=== PATIENT | female | born 1960 | race Caucasian/White ===

== ENCOUNTER 2019-09-28 14:41 | Emergency (ER) | payer OTHER, SELFPAY ==
[2019-09-28] VITALS (7 sets, daily range): BP systolic 109–151; BP diastolic 63–83; PULSE 124–138; RESP 18–25; TEMP 36.7; O2SAT 95–98
--- NOTE | ~2019-09-28 | XR_ITS ---
EXAMINATION: XR chest 2V EXAM DATE: 09/28/2019 15:52 INDICATION: Cough and shortness of breath. TECHNIQUE: Frontal and lateral projections of the chest obtained and reviewed. Comparison is made to prior examination from 07/09/2012. FINDINGS: The lungs are clear. There are no pleural effusions. The cardiomediastinal silhouette is within normal limits. There is no pneumothorax suspected. Patient has diffuse idiopathic skeletal h yperostosis (DISH). IMPRESSION: No acute cardiopulmonary findings. Reviewed, dictated and finalized at location A. [employer]
--- NOTE | ~2019-09-28 | CT_ITS ---
EXAMINATION: CTA chest PE protocol EXAM DATE: 09/28/2019 16:24 INDICATION: Midsternal chest pain, shortness of breath, tachycardia. TECHNIQUE: Spiral CTA of the chest (pulmonary arteries) was performed with 100 cc Omnipaque 350 intr avenous contrast injection. Images were acquired during the pulmonary arterial phase. Coronal maxi mum intensity projection 3D-reconstructions were created by the technologist on dedicated workstation . Axial, coronal and sagittal reformatted images were reviewed. The dose-length product (DLP) for t his examination was 882.69 mGy-cm. The exposure was tailored according to patient size (auto mA exp osure control), and iterative reconstruction (ASIR) was used as additional dose reduction technique. There is no prior study for comparison. FINDINGS: There are no pulmonary emboli in the 1st through 3rd order (central and interlobar) pulmon andria arteries. Some loss of attenuation in the segmental pulmonary arteries due to respiratory motion , but no intraluminal filling defects suspected. No thoracic aortic dissection. There is a 4 mm ri ght middle lobe nodule most likely postinfectious. There is right lower lobe calcified granuloma. Th ere are no pleural or pericardial effusions. Tracheobronchial tree is patent. There is no mediast inal, hilar or axillary lymphadenopathy. There is no pneumothorax. Heart normal in size. There is mild coronary arterial calcification, arterial sclerosis. There is hepatic steatosis. Patient goode s diffuse idiopathic skeletal hyperostosis (DISH). There is moderate thoracic spondylosis. IMPRESSION: 1. Limited segmental evaluation, but no pulmonary emboli are suspected. 2. Hepatic steatosis. Reviewed, dictated and finalized at location A. [employer]
--- NOTE | 2019-09-28 14:52 | ED.CHESTPAIN ---
HPI - Chest Pain General Chief Complaint: Chest Pain Stated Complaint: chest pain Time Seen by Provider: 09/28/19 14:52 Source: patient Mode of arrival: ambulatory Limitations: no limitations History of Present Illness HPI narrative: A 59 y/o female presents to the ED with c/o a cough since Sunday (2 days ago) and midsternal CP. Pt states that the cough started out as dry but became productive today. Pt was seen at [facility] yesterday with a wheeze and was advised to follow up with her PCP for possible asthma. Pt also c/o constant midsternal CP that began at 1:00 AM that has worsened since onset. Pt describes the pain as dull in character that turns into a stabbing pain when she coughs. Pt rates her current pain as a 7.5/10 in severity. Pt has not taken any pain medication today. She reports N/V x3 today, sinus congestion, SOB, and a PMHx of a leaky heart valve, but denies a fever, smoking, and a PMHx of an UT, stents, and kidney problems. Pain location: other (midsternal) Quality: dull and other (stabbing when coughing) Treatment prior to arrival: none Related Data Allergies Allergy/AdvReac Type Severity Reaction Status Date / Time lisinopril Allergy Intermediate Cough Verified 09/28/19 14:51 HYDROCODONE BIT Allergy Mild DIZZY Uncoded 09/28/19 14:51 Review of Systems Review of Systems: All systems reviewed & are unremarkable except as noted in HPI and below Constitutional: Constitutional: Denies fever(s) ENT: Comments: Reports: sinus congestion Cardiovascular: Cardiovascular: Reports chest pain (midsternal) Respiratory: Respiratory: Reports cough (productive) and Reports dyspnea Gastrointestinal: Gastrointestinal: Reports nausea and Reports vomiting (x3) [facility] Past Medical History Medical History (Updated 09/28/19 @ 18:20 by Chata Pratt MD) Diverticulitis DM I (diabetes mellitus, type I) Far-sighted HLD (hyperlipidemia) HTN (hypertension) Leaky heart valve left ventricle Rectal fissure Sleep apnea Surgical History Surgical History (Updated 09/28/19 @ 15:06 by Oralia Alaniz) H/O removal of cyst left wrist History of tonsillectomy Hx of cholecystectomy Family History Family History Mother Family history of hypercholesterolemia Hypertension Cerebrovascular accident Family history of lung cancer Other Family history of malignant neoplasm Family history of malignant neoplasm of breast Family history of malignant neoplasm of ovary Social History Social History Smoking status: Never smoker Alcohol intake: current Comments PSHx: rectal fissure surgery PCP: Ora Campuzano NP Exam Narrative: Exam Narrative: GENERAL: well-nourished, and in no acute distress. patietn coughing HEAD: Normocephalic, atraumatic EYES: PERRLA and EOMI, conjunctiva clear without discharge EARS: TM's clear bilaterally without erythema or dullness NOSE: Nares clear, no rhinorrhea or epistaxis THROAT:Mucous membranes moist, Oropharynx normal without erythema, exudate, peritonsillar swelling or fluctuance NECK: Supple, without lymphadenopathy or mass RESPIRATORY: No respiratory distress, Airway patent, Respirations non-labored, Clear to auscultation without rales, rhonchi or wheeze HEART: Tachycardic rate Regular rhythm. No murmur heard. Normal peripheral pulses. ABDOMEN: Soft, nontender, nondistended, normal active bowel sounds. No masses. No rebound or guarding, No organomegaly. EXTREMITIES: No edema, normal strength with full range of motion. SKIN: Warm, dry, normal color without rash NEURO: Alert and oriented x3. CN 2-12 grossly intact. No focal deficits. PSYCH: Normal mood and affect. Course Reevaluation(s) Reevaluation #1: PAtient states sh feels much better. She denies any sob. I discussed she does not have pneumonia. I discussed that she is at risk and to return if symptoms worsen. Date: 09/28/19
--- NOTE | 2019-09-28 14:58 | ECG_ITS ---
Measurements Intervals [place] Rate: 128 P: 55 HI: 170 QRS: 80 QRSD: 90 T: 64 QT: 318 QTc: 465 Interpretive Statements SINUS TACHYCARDIA ABNORMAL ECG Electronically Signed On 09-28-2019 19:23:28 [employer] by Albino Rain D.O.
[2019-09-28 15:34] LABS: Basophils Absolute Auto 0.1 K/mm3 (0.0-0.1); Basophils Percent Auto 0.6 % (0.2-1.2); Eosinophils Percent Auto 0.1 % (0-4.4); Hematocrit 44.5 % (37.0-47.0); Hemoglobin 14.5 g/dL (12.0-15.0); Immature Granulocyte Absolute 0.03 K/mm3 (0.00-0.031); Immature Granulocyte Percent A 0.4 % (0-0.5); Lymphocytes Absolute Auto 0.48 K/mm3 (0.9-3.2); Lymphocytes Percent Auto 5.9 % (18.3-44.2); Mean Corpuscular HGB Conc 32.6 g/dl (32-36); Mean Corpuscular Hemoglobin 30.3 pg (26-34); Mean Corpuscular Volume 92.9 fl (80-100); Mean Platelet Volume 11.1 fl (7.4-10.4); Monocytes Absolute Auto 0.8 K/mm3 (0.1-0.6); Monocytes Percent Auto 9.5 % (2.6-8.5); Neutrophils Absolute Auto 6.7 K/mm3 (1.3-6.7); Neutrophils Percent Auto 83.5 % (45.5-73.1); Platelet Count Result 247 k/mm3 (150-375); Red Blood Count 4.79 M/mm3 (4.2-5.4); Red Cell Distribution Width 14.4 % (11.5-14.5); White Blood Count 8.1 K/mm3 (4.5-10.0)
[2019-09-28 15:36] LABS: Alveolar/Arterial O2 Gradient 41.9 mmHg; Base Excess ABG 1.1 mEq/l (+/-2.0); Carboxyhemoglobin 1.1 % THb (0-2.0); Fractional Inspired Oxygen 21 %; HCO3 ABG 22.2 mEq/l (22.0-26.0); Methemoglobin ABG 0.2 %THb (0-1.5); Oxygen Content ABG 19.7 %vol (16.0-22.0); Oxygen Saturation ABG 96.7 % (95.0-100.0); Oxyhemoglobin 95.3 % THb (90.0-100.0); PCO2 ABG 26.8 mmHg (35.0-45.0); PO2 ABG 75.7 mmHg (80.0-100.0); Reduced Hemoglobin 3.4 %THb (0-5.0); Total Hemoglobin 14.7 g/dL (12.0-18.0)
[2019-09-28 15:38] LABS: Site Drawn LEFT BRACHIAL; pH ABG 7.537 (7.350-7.450)
[2019-09-28 15:39] LABS: Device ROOM AIR
[2019-09-28 15:45] LABS: Alanine Aminotransferase 58 U/L (4-35); Albumin Level 4.3 g/dL (3.5-5.1); Alkaline Phosphatase 102 U/L (38-126); Aspartate Amino Transferase 69 U/L (14-36); Bilirubin,Total 0.6 mg/dL (0.2-1.3); Blood Urea Nitrogen 7 mg/dL (7-17); Calcium 9.5 mg/dL (8.4-10.2); Carbon Dioxide 25 mmol/L (22-30); Chloride 100 mmol/L (98-107); Estimated CRCL calculation 89 ml/min; Estimated Glomerular Filt Rate > 60; Glucose 196 mg/dL (65-105); Lipase 159 U/L (23-300); Sodium 136 mmol/L (137-145)
[2019-09-28] MEDS: SODIUM CHLORIDE 0.9% IV 1,000 ML 999 ML IV CONT (15:46)
[2019-09-28] MEDS: ONDANSETRON INJ 4 MG/2 ML VIAL IV PUSH (15:46)
[2019-09-28 15:57] LABS: Lactic Acid Reflex 2.5 mmol/L (0.7-2.1)
[2019-09-28 15:57] LABS: NT Pro B Type Natriuretic Pept 405 PG/ML (5-100); Troponin I < 0.012 ng/mL (0.000-0.034)
[2019-09-28] MEDS: IPRATROPIUM BR 0.02% INH SOLN 0.5 MG/2.5 ML VIAL INHALATION (16:25)
[2019-09-28] MEDS: ALBUTEROL SULFATE NEB 2.5 MG/0.5 ML INH 5 MG INHALATION (16:26)
[2019-09-28] MEDS: LACTATED RINGERS 1,000 ML 999 ML IV CONT ×2 (16:29→17:15)
[2019-09-28 18:44] LABS: Reflex Lactic Acid Yes or No Add Lactic
--- NOTE | 2019-10-08 17:20 | PC.NURSE ---
LATE ENTRY This note is being entered to document information to the patient's record. The following information was omitted on [09/28/19], by [Jason Blair] SARAH BETH STARTED , ENDED 1730. LR STARTED AT 1715, ENDED 1815 Jason Blair
== END 2019-09-28 18:36 | disposition home or self-care (01) ==
PROVIDERS: Emergency Provider General Practice; PCP Nurse Practitioner Adult Health
DX: J10.1 Influenza due to other identified influenza virus with other respiratory manifestations (principal); E10.9 Type 1 diabetes mellitus without complications; E78.5 Hyperlipidemia, unspecified; I10 Essential (primary) hypertension; G47.30 Sleep apnea, unspecified; I38 Endocarditis, valve unspecified; R00.0 Tachycardia, unspecified; R06.02 Shortness of breath
CPT/HCPCS: 36415; 36600; 71046; 71275; 80053; 82375; 82805; 83050; 83605; 83690; 83880; 84484; 85025; 87804; 93005; 94640; 96361; 96374; 96375; 99284; J0131; J2405; J7030; J7120; Q9967

== ENCOUNTER 2020-06-25 14:58 | Outpatient (CLI) | payer OTHER, SELFPAY ==
[2020-06-25 15:30] LABS: Anion Gap 7 mmol/L (8-16); Blood Urea Nitrogen 9 mg/dL (7-17); Carbon Dioxide 33 mmol/L (22-30); Chloride 101 mmol/L (98-107); Estimated Glomerular Filt Rate > 60; Glucose 150 mg/dL (65-105); Potassium 4.2 mmol/L (3.4-5.0); Sodium 141 mmol/L (137-145)
== END 2020-06-25 14:59 | disposition home or self-care (01) ==
LOC: ANHSURGERY 15:00
PROVIDERS: Anesthesiology; PCP Nurse Practitioner Adult Health; Visit Provider Obstetrics & Gynecology
DX: E11.9 Type 2 diabetes mellitus without complications (principal); Z01.818 Encounter for other preprocedural examination
CPT/HCPCS: 36415; 80048

== ENCOUNTER 2020-06-28 00:48 | Outpatient (CLI) | payer OTHER, SELFPAY ==
[2020-06-28 16:30] LABS: SARS-CoV-2 RNA PCR Negative
== END 2020-06-28 00:49 | disposition home or self-care (01) ==
LOC: ANHCOVIDDT 00:48
PROVIDERS: PCP Nurse Practitioner Adult Health; Visit Provider Obstetrics & Gynecology
DX: Z01.812 Encounter for preprocedural laboratory examination (principal); Z20.828 Contact with and (suspected) exposure to other viral communicable diseases
CPT/HCPCS: 87635; C9803; U0003

== ENCOUNTER 2020-06-30 00:23 | Day surgery (SDC) | payer OTHER, SELFPAY ==
[2020-06-17 12:36] VITALS: BMI 47.9
--- NOTE | 2020-06-29 08:40 | WPDANESEPPF ---
Anes - Initial Pre Proc Eval Procedure: Operation Date: 06/30/20 10:30 Proposed Procedures p Hysteroscopy Dilation and Curettage With Myosure - Poncho Taylor MD Date/Time: 06/29/20 08:40 Surgeon: Poncho Taylor MD Pre Op Diagnosis: Post Menopausal Bleeding Patient Data Age: 60 Gender: F Height: 1.57 m Weight: 118.84 kg Allergies Allergy/AdvReac Type Severity Reaction Status Date / Time lisinopril Allergy Intermediate Cough Verified 06/30/20 08:42 HYDROCODONE BIT AdvReac Mild DIZZY Uncoded 06/30/20 08:42 Home Medications Medication Instructions Recorded Confirmed Type ascorbate calcium (vitamin C) 500 500 mg PO DAILY 05/27/20 06/30/20 History mg tablet aspirin 81 mg tablet,delayed 81 mg PO DAILY 05/27/20 06/30/20 History release cetirizine 10 mg capsule 10 mg PO DAILY 05/27/20 06/30/20 History cholecalciferol (vitamin D3) 1,250 1,250 mcg PO WEEKLY 05/27/20 06/30/20 History mcg (50,000 unit) capsule ezetimibe 10 mg tablet 10 mg PO DAILY 05/27/20 06/30/20 History glimepiride 2 mg tablet 2 mg PO QAM 05/27/20 06/30/20 History liraglutide (weight loss) 3 mg/0.5 3 mg SUB-Q DAILY 05/27/20 06/30/20 History mL (18 mg/3 mL) subcut pen injector losartan 25 mg tablet 25 mg PO DAILY 05/27/20 06/30/20 History multivitamin,sl-hqdz-uatefixe 1 tablet PO DAILY 05/27/20 06/30/20 History vitamin B complex 1 tablet PO DAILY 05/27/20 06/30/20 History cyanocobalamin (vitamin B-12) 1,000 mcg PO DAILY 06/17/20 06/30/20 History [Vitamin B-12] famotidine 20 mg tablet 20 mg PO DAILY 06/23/20 06/30/20 History metformin 500 mg tablet 500 mg PO BID 06/23/20 History Patient hx anesthesia problems: none Family hx anesthesia problems: none PMFSH Past Medical History Medical History (Updated 06/30/20 @ 06:17 by Poncho Taylor MD) Diverticulitis DM I (diabetes mellitus, type I) Far-sighted HLD (hyperlipidemia) HTN (hypertension) Leaky heart valve left ventricle Rectal fissure Sleep apnea Surgical History Surgical History (Updated 05/28/20 @ 11:21 by Poncho Taylor MD) H/O removal of cyst left wrist History of hysteroscopy History of tonsillectomy Hx of cholecystectomy Family History Family History Mother Family history of hypercholesterolemia Hypertension Cerebrovascular accident Family history of lung cancer Other Family history of malignant neoplasm Family history of malignant neoplasm of breast Family history of malignant neoplasm of ovary Social History Social History Smoking status: Never smoker Alcohol intake: current Spiritual care concerns: No Anes - Eval Final PreProcedure Day of Procedure 06/29/20 08:40 Patient weight: morbidly obese Heart: regular rate and rhythm Lungs: clear to auscultation and normal air movement Airway: Mallampati scale class III Neurological: alert and oriented Last oral intake: >/= 8 hours ASA classification: III Emergent: no Anesthetic plan: proceed Anesthesia type and monitoring: general GIVS and standard monitoring Informed Consent: The patient's anesthetic plan and its attendant risks and benefits were discussed with the patient/family/POA. Questions were solicited and answers provided to the satisfaction of the patient/family/POA.
[2020-06-30] VITALS (7 sets, daily range): BP systolic 129–176; BP diastolic 59–96; PULSE 63–86; RESP 14–20; TEMP 36.7; O2SAT 94–99
--- NOTE | 2020-06-30 06:10 | PM.IMHP ---
H&P: HPI History of Present Illness Date/Time: 06/30/20 06:10 Chief complaint: Post Menopausal Bleeding Narrative: Anaid Blanc is a 60 year old female with recent history of postmenopausal spotting. Recent ultrasound showed thickened endometrial stripe. She was offered office endometrial biopsy or direct visualization with hysteroscopy and dilation and currettage for histologic evaluation of the endometrium. She declined the office biopsy and desires hysteroscopy. She had a hysteroscopy in 2017 and endometrial polyp was seen at that time. Has had pre-op medical clearance. Review of Systems Review of Systems: All systems reviewed & are unremarkable except as noted in HPI and below Constitutional: Constitutional: Reports no additional constitutional complaints Eyes: Eyes: Reports no additional eye complaints ENT: Reports Normal hearing present Cardiovascular: Cardiovascular: Denies chest pain and Denies dyspnea Respiratory: Respiratory: Reports no additional respiratory complaints, Denies dyspnea and Reports other Gastrointestinal: Gastrointestinal: Denies abdominal pain Genitourinary: Genitourinary: Reports no additional female genitourinary complaints and Reports as per HPI Psychiatric: Psychiatric: Reports no additional psychiatric complaints Endocrine: Endocrine: Reports no additional endocrine complaints Hematologic/Lymphatic: Hematologic/Lymphatic: Reports no additional hematologic/lymphatic complaints [facility] Past Medical History Medical History (Updated 06/30/20 @ 06:17 by Poncho Taylor MD) Diverticulitis DM I (diabetes mellitus, type I) Far-sighted HLD (hyperlipidemia) HTN (hypertension) Leaky heart valve left ventricle Rectal fissure Sleep apnea Surgical History Surgical History (Updated 05/28/20 @ 11:21 by Poncho Taylor MD) H/O removal of cyst left wrist History of hysteroscopy History of tonsillectomy Hx of cholecystectomy Family History Family History Mother Family history of hypercholesterolemia Hypertension Cerebrovascular accident Family history of lung cancer Other Family history of malignant neoplasm Family history of malignant neoplasm of breast Family history of malignant neoplasm of ovary Social History Social History Smoking status: Never smoker Alcohol intake: current Spiritual care concerns: No Meds Home Medications and Allergies Home Medications Medication Instructions Recorded Confirmed Type ascorbate calcium (vitamin C) 500 500 mg PO DAILY 05/27/20 06/30/20 History mg tablet aspirin 81 mg tablet,delayed 81 mg PO DAILY 05/27/20 06/30/20 History release cetirizine 10 mg capsule 10 mg PO DAILY 05/27/20 06/30/20 History cholecalciferol (vitamin D3) 1,250 1,250 mcg PO WEEKLY 05/27/20 06/30/20 History mcg (50,000 unit) capsule ezetimibe 10 mg tablet 10 mg PO DAILY 05/27/20 06/30/20 History glimepiride 2 mg tablet 2 mg PO QAM 05/27/20 06/30/20 History liraglutide (weight loss) 3 mg/0.5 3 mg SUB-Q DAILY 05/27/20 06/30/20 History mL (18 mg/3 mL) subcut pen injector losartan 25 mg tablet 25 mg PO DAILY 05/27/20 06/30/20 History multivitamin,wm-vuay-rczyevje 1 tablet PO DAILY 05/27/20 06/30/20 History vitamin B complex 1 tablet PO DAILY 05/27/20 06/30/20 History cyanocobalamin (vitamin B-12) 1,000 mcg PO DAILY 06/17/20 06/30/20 History [Vitamin B-12] famotidine 20 mg tablet 20 mg PO DAILY 06/23/20 06/30/20 History metformin 500 mg tablet 500 mg PO BID 06/23/20 History Allergies Allergy/AdvReac Type Severity Reaction Status Date / Time lisinopril Allergy Intermediate Cough Verified 06/30/20 08:42 HYDROCODONE BIT AdvReac Mild DIZZY Uncoded 06/30/20 08:42 Exam Const: General: healthy appearing, no acute distress, alert and awake Nutritional Appearance: well nourished Orientation/consciousness: oriented to
[2020-06-30] MEDS: ACETAMINOPHEN 500 MG TABLET 1000 MG PO (08:58)
[2020-06-30] MEDS: LACTATED RINGERS 1,000 ML 30 ML IV CONT (08:59)
[2020-06-30 09:10] LABS: Glucose Point of Care 168 (65-105)
--- NOTE | 2020-06-30 10:27 | SUR.PREOP ---
update provided r/t delay w/surgeon/acknowledges understanding. ambulated to bathroom w/minimal assistance/family update provided to sister kishan as noted.
--- NOTE | 2020-06-30 11:31 | SUR.PREOP ---
1130-PT AWARE SURGEON DELAYS SELF ADDITIONAL ~45 MINUTES.
--- NOTE | 2020-06-30 12:14 | WPDHPUPDATE1 ---
History and Physical Update Update Date/Time: 06/30/20 12:14 History and Physical has been reviewed, including an updated exam of the patient. There are NO changes in the patient's condition. Risks, benefits, and alternatives have been discussed and questions answered. Patient agrees to proceed with procedure.
[2020-06-30] MEDS: ceFAZolin 2 GM/D5W 50 ML 2 GM/50 ML BAG IVPB (12:19)
--- NOTE | 2020-06-30 12:51 | PM.PROC ---
Procedure Note - Detailed Date of procedure: 07/01/20 Pre-op diagnosis: Post Menopausal Bleeding Post-op diagnosis: same (Endometrial lesion consistent with endometrial polyp.) Procedure performed: Diagnostic Hysteroscopy and Dilation and Currettage Description of procedure: After informed consent was obtained patient was taken to the operating room. Adequate IV sedation was obtained. she was placed in high lithotomy position and prepped and draped in sterile fashion. Attention was turned to the vagina. Speculum was inserted. Single-tooth tenaculum placed on anterior lip of the cervix. The uterus was sounded to 10 centimeters. The cervix was dilated to a size 8 Alvarez dilator. The hysteroscope was inserted. The cavity assessment showed 2 polyps. Stone forceps were inserted and 2 polyp pieces were removed. The myosure was inserted and the remnant of the anterior polyp removed. The hysteroscope was removed and a sharp curettage was performed. Scant tissue obtained. The tenaculum was removed hemostasis was noted at the tenaculum site. The speculum was removed. The patient tolerated the procedure well. Sponge count correct. Patient was taken to recovery room in stable condition. Anesthesia: MAC and local Surgeon: Poncho Taylor MD Estimated blood loss (mL): 5 Drains: No Packing: No Pathology: yes (1. Endocervical currettage 2. Endometrial currettings) Complications: No immediate complications Condition: stable Disposition: same day Findings: Uterus sound to 10cm, uterine cavity showed several small endometrial polyps. The rest of the cavity appeared atrophic.Most of it removed with stone forceps and the base removed with myosure. Most of the cavity felt atrophic with the currettage.
[2020-06-30 13:26] LABS: Glucose Point of Care 143 (65-105)
[2020-06-30] MEDS: fentaNYL CITRATE INJ (*CRX) 100 MCG/2 ML VIAL 25 MCG IV PUSH ×2 (13:31→13:38)
--- NOTE | 2020-06-30 13:57 | SUR.PHASEII ---
1355- Call to Dr. Salas patient complaining of significant abdominal pain after 50MG of IV fentanyl given. Per Dr. Salas orders for 5MG PO oxycodone.
[2020-06-30] MEDS: oxyCODONE HCL (*CRX) 5 MG TAB IR PO (14:01)
== END 2020-06-30 14:32 | disposition home or self-care (01) ==
PROVIDERS: PCP Nurse Practitioner Adult Health; Visit Provider Obstetrics & Gynecology
PROC: 0U5B8ZZ Destruction of Endometrium, Via Natural or Artificial Opening Endoscopic (ICD-10-PCS; CPT 58563; principal; 2020-06-30 10:30)
DX: N95.0 Postmenopausal bleeding (principal); N84.0 Polyp of corpus uteri; E10.9 Type 1 diabetes mellitus without complications; I10 Essential (primary) hypertension; E78.5 Hyperlipidemia, unspecified; G47.30 Sleep apnea, unspecified; Z79.84 Long term (current) use of oral hypoglycemic drugs; Z79.82 Long term (current) use of aspirin; E66.01 Morbid (severe) obesity due to excess calories; Z68.42 Body mass index [BMI] 45.0-49.9, adult
CPT/HCPCS: 58558; 88305; A9270; J0690; J1885; J2250; J2704; J3010; J7030; J7120

== ENCOUNTER → 2020-11-30 17:34 | Outpatient (CLI) | payer OTHER, SELFPAY ==
--- NOTE | ~2020-11-30 | US_ITS ---
EXAMINATION: US pelvic complete w TV DATE: 11/30/2020 17:54 INDICATION: Postmenopausal bleeding. TECHNIQUE: Multiple transabdominal and transvaginal sonographic images of the pelvis were obtained. COMPARISON: Pelvis ultrasound 11/17/2016 FINDINGS: TRANSABDOMINAL ULTRASOUND: The uterus measures 6.3 x 3.3 x 4.1 cm. There is no free fluid in the pelvis. TRANSVAGINAL ULTRASOUND: The endometrial complex measures 7 mm in thickness. The ovaries are not visualized. IMPRESSION: 1. Mildly thickened endometrial complex. The differential diagnosis includes endometrial hyperplasia, polyp, and carcinoma. Biopsy is recommended. Reviewed, dictated and finalized at location A. IMPRESSION: 1. Mildly thickened endometrial complex. The differential diagnosis includes en dometrial hyperplasia, polyp, and carcinoma. Biopsy is recommended.
== END ==
PROVIDERS: Visit Provider Obstetrics & Gynecology
DX: N95.0 Postmenopausal bleeding (principal)
CPT/HCPCS: 76830; 76856

== ENCOUNTER 2021-01-06 15:26 | Outpatient (CLI) | payer OTHER, SELFPAY ==
--- NOTE | 2021-01-06 16:06 | ECG_ITS ---
Measurements Intervals [place] Rate: 71 P: 28 VA: 169 QRS: 64 QRSD: 94 T: 58 QT: 394 QTc: 429 Interpretive Statements SINUS RHYTHM WITH SINUS ARRHYTHMIA BASELINE ARTIFACT- V4-V6 NORMAL ECG Electronically Signed On 01-06-2021 16:18:44 CDT by Albino Rain D.O.
== END 2021-01-06 15:27 | disposition home or self-care (01) ==
PROVIDERS: PCP Nurse Practitioner Adult Health; Visit Provider Obstetrics & Gynecology
DX: Z01.818 Encounter for other preprocedural examination (principal)
CPT/HCPCS: 93005

== ENCOUNTER 2021-02-10 17:02 | Outpatient (CLI) | payer OTHER, SELFPAY ==
--- NOTE | ~2021-02-10 | US_ITS ---
EXAMINATION: US venous doppler [facility] DATE: 02/10/2021 17:42 INDICATION: Left lower leg pain. TECHNIQUE: Grayscale ultrasound images without and with compression and Doppler ultrasound images of the left lower extremity veins were obtained. COMPARISON: None. FINDINGS: The visualized portions of left common femoral vein, profunda (deep) femoral vein, femoral vein, popl iteal vein, peroneal veins, posterior tibial veins, gastrocnemius vein and greater saphenous vein out flow are patent. IMPRESSION: 1. No deep venous thrombosis in the left lower limb. Reviewed, dictated and finalized at location A.
== END 2021-02-10 17:03 | disposition home or self-care (01) ==
LOC: ANHIMG 17:03
PROVIDERS: PCP Nurse Practitioner Adult Health; Visit Provider Nurse Practitioner Adult Health
DX: M79.662 Pain in left lower leg (principal)
CPT/HCPCS: 93971

== ENCOUNTER 2021-02-18 14:56 | Outpatient (CLI) | payer OTHER, SELFPAY ==
[2021-02-18 15:36] LABS: Anion Gap 7 mmol/L (8-16); Blood Urea Nitrogen 12 mg/dL (7-17); Calcium 9.8 mg/dL (8.4-10.2); Carbon Dioxide 25 mmol/L (22-30); Chloride 109 mmol/L (98-107); Estimated Glomerular Filt Rate > 60; Glucose 114 mg/dL (65-105); Sodium 141 mmol/L (137-145)
== END 2021-02-18 14:57 | disposition home or self-care (01) ==
LOC: ANHSURGERY 15:01
PROVIDERS: Anesthesiology; PCP Nurse Practitioner Adult Health; Visit Provider Obstetrics & Gynecology
DX: E11.9 Type 2 diabetes mellitus without complications (principal); Z01.818 Encounter for other preprocedural examination
CPT/HCPCS: 36415; 80048

== ENCOUNTER → 2021-02-19 00:13 | Outpatient (CLI) | payer OTHER, SELFPAY ==
[2021-02-19 19:26] LABS: SARS-CoV-2 RNA PCR Negative
== END ==
PROVIDERS: PCP Nurse Practitioner Adult Health; Visit Provider Obstetrics & Gynecology
DX: Z01.812 Encounter for preprocedural laboratory examination (principal); Z20.822 Contact with and (suspected) exposure to COVID-19
CPT/HCPCS: C9803; U0003; U0005

== ENCOUNTER 2021-02-23 00:34 | Day surgery (SDC) | payer OTHER, SELFPAY ==
[2021-02-14 13:08] VITALS: BMI 46.6
--- NOTE | 2021-02-22 14:03 | WPDANESEPPF ---
Anes - Initial Pre Proc Eval Procedure: Operation Date: 02/23/21 07:30 Proposed Procedures p Robotic Assisted Laparoscopic Hysterectomy with Bilateral Salpingectomy - Poncho Taylor MD Date/Time: 02/22/21 14:03 Surgeon: Poncho Taylor MD Pre Op Diagnosis: post menopausal bleeding Patient Data Age: 60 Gender: F Height: 1.57 m Weight: 115.67 kg Allergies Allergy/AdvReac Type Severity Reaction Status Date / Time lisinopril AdvReac Intermediate Cough Verified 02/23/21 06:14 HYDROCODONE BIT AdvReac Mild DIZZY Uncoded 02/23/21 06:14 Home Medications Medication Instructions Recorded Confirmed Type ascorbate calcium (vitamin C) 500 500 mg PO DAILY 05/27/20 02/23/21 History mg tablet cetirizine 10 mg capsule 10 mg PO DAILY 05/27/20 02/23/21 History ezetimibe 10 mg tablet 10 mg PO DAILY 05/27/20 02/23/21 History glimepiride 2 mg tablet 2 mg PO QAM 05/27/20 02/23/21 History liraglutide (weight loss) 3 mg/0.5 3 mg SUB-Q DAILY 05/27/20 02/23/21 History mL (18 mg/3 mL) subcut pen injector losartan 25 mg tablet 25 mg PO DAILY 05/27/20 02/23/21 History multivitamin,lb-xmkt-bxnkhtme 1 tablet PO DAILY 05/27/20 02/23/21 History cyanocobalamin (vitamin B-12) 1,000 mcg PO DAILY 06/17/20 02/23/21 History [Vitamin B-12] famotidine 20 mg tablet 20 mg PO DAILY 06/23/20 02/23/21 History metformin 500 mg tablet 1,000 mg PO BID 06/23/20 02/23/21 History cholecalciferol (vitamin D3) 125 125 mcg PO DAILY 12/28/20 02/23/21 History mcg (5,000 unit) capsule nystatin-triamcinolone 100,000 1 applic TOPICAL BID #15 g 02/15/21 02/15/21 Rx unit/gram-0.1 % topical ointment Patient hx anesthesia problems: none Family hx anesthesia problems: none PMFSH Past Medical History Medical History Diverticulitis DM I (diabetes mellitus, type I) Far-sighted HLD (hyperlipidemia) HTN (hypertension) Leaky heart valve left ventricle Rectal fissure Sleep apnea Surgical History Surgical History H/O removal of cyst left wrist History of hysteroscopy History of tonsillectomy Hx of cholecystectomy S/P D&C (status post dilation and curettage) Family History Family History Mother Family history of hypercholesterolemia Hypertension Cerebrovascular accident Family history of lung cancer Other Family history of malignant neoplasm Family history of malignant neoplasm of breast Family history of malignant neoplasm of ovary Social History Social History Smoking status: Never smoker Alcohol intake: current Substance use: unknown Living arrangements: alone Spiritual care concerns: No Anes - Eval Final PreProcedure Day of Procedure 02/22/21 14:03 Patient weight: morbidly obese Heart: regular rate and rhythm Lungs: clear to auscultation Airway: Mallampati scale class III Neurological: alert and oriented Last oral intake: >/= 8 hours ASA classification: IV Emergent: no Anesthetic plan: proceed Anesthesia type and monitoring: general ETT (have glidescope in the room) and standard monitoring Informed Consent: The patient's anesthetic plan and its attendant risks and benefits were discussed with the patient/family/POA. Questions were solicited and answers provided to the satisfaction of the patient/family/POA.
--- NOTE | 2021-02-22 16:31 | PM.IMHP ---
H&P: HPI History of Present Illness Date/Time: 02/22/21 16:31 Patient is a 60-year-old G0 menopausal patient who presented in November with complaints of bleeding. She underwent evaluation for this and had an ultrasound which showed a thickened endometrial stripe she had a subsequent office biopsy and it showed an endometrial polyp. She has had 2 D and C hysteroscopies which both confirmed endometrial polyps. Her last polyp removal was in June 2020. Prior to that it was 2016. Also she had atypical glandular cells on her Pap smear which was done due to the bleeding also her subsequent cervical biopsies were negative. She was informed that I am concerned that her test or getting more abnormal with the atypical glandular cells but the biopsies were negative. She does have risk factors for endometrial cancer due to history of diabetes and obesity. She was informed of option of a another hysteroscopy and D and C and removal of polyp. Informed that the polyps can reoccur. Polyps are generally benign there could be some abnormal cells starting inside of a polyp and therefore any time an endometrial polyp is seen or suspected in a postmenopausal patient is recommended to be removed. Since she has recurrent postmenopausal bleeding and endometrial polyp I offered hysterectomy. She also has option for Dilation and currettage.She was informed of risks benefits of both procedures. She states she does not want to have to undergo D and C hysteroscopy repeatedly or have to do that anymore she desires definitive treatment with hysterectomy. She has a family history she thinks of some type of cancer and states a lot of women in her family have had cancer unspecified for sure as to which ones. I discussed with her risks of hysteroscopy and D&C and risk of hysterectomy. I usually perform the laparoscopic robotic assisted hysterectomy. Recommend removal of both ovaries and fallopian tubes. Discussed the recovery. Discussed in detail the robotic hysterectomy and bilateral salpingo-oophorectomy procedure and risk of this procedure to include bleeding infection, injury to other organs, laparotomy, deep vein thrombosis, . Her questions were answered. She has been cleared by her medicine doctor for surgery. Her last hemoglobin A1c was 7.4. Chief Complaint: Recurrent postmenopausal bleeding and endometrial polyps. Review of Systems Review of Systems: All systems reviewed & are unremarkable except as noted in HPI and below Cardiovascular: Cardiovascular: Reports no additional cardiovascular complaints, Denies chest pain and Denies dyspnea Respiratory: Respiratory: Reports no additional respiratory complaints and Denies dyspnea Gastrointestinal: Gastrointestinal: Reports abdominal pain, Denies change in bowel habits, Denies diarrhea, Denies nausea and Denies vomiting Genitourinary: Genitourinary: Reports pelvic pain Musculoskeletal: Musculoskeletal: Reports back pain Integumentary/Breasts: Skin/Breast: Reports system reviewed and no additional complaints, except as docu Neurologic: Reports system reviewed and no additional complaints, except as documented PMFSH Past Medical History Medical History Diverticulitis DM I (diabetes mellitus, type I) Far-sighted HLD (hyperlipidemia) HTN (hypertension) Leaky heart valve left ventricle Rectal fissure Sleep apnea Surgical History Surgical History H/O removal of cyst left wrist History of hysteroscopy History of tonsillectomy Hx of cholecystectomy S/P D&C (status post dilation and curettage) Family History Family History Mother Family history of hypercholesterolemia Hypertension Cerebrovascular accident Family history of lung cancer Other Family history of malignant neoplasm Family history of malignant neoplasm of breast Family history of
[2021-02-23] VITALS (9 sets, daily range): BP systolic 127–162; BP diastolic 68–82; PULSE 64–103; RESP 14–22; TEMP 36.1–37.3; O2SAT 95–100; BMI 46.2
[2021-02-23] MEDS: LACTATED RINGERS 1,000 ML 30 ML IV CONT ×2 (06:41→12:03)
[2021-02-23] MEDS: ACETAMINOPHEN 500 MG TABLET 1000 MG PO (06:42)
[2021-02-23] MEDS: KETOROLAC 15 MG/ML VIAL (*BKC) IV PUSH (06:42)
[2021-02-23 06:55] LABS: Glucose Point of Care 152 mg/dl (65-105)
--- NOTE | 2021-02-23 07:08 | WPDHPUPDATE1 ---
History and Physical Update Update Date/Time: 02/23/21 07:08 History and Physical has been reviewed, including an updated exam of the patient. There are NO changes in the patient's condition. Risks, benefits, and alternatives have been discussed and questions answered. Patient agrees to proceed with procedure.
[2021-02-23] MEDS: SCOPOLAMINE 1.5 MG PATCH TRANSDERM (07:22)
[2021-02-23] MEDS: ceFAZolin 2 GM/D5W 50 ML 2 GM/50 ML BAG IVPB (07:26)
[2021-02-23] MEDS: BUPIVACAINE HCL 0.5% PF 30 ML VIAL INFILTRATE (08:52)
--- NOTE | 2021-02-23 11:54 | PM.OP ---
Procedure Note - Brief Procedure Note - Brief Date of procedure: 02/23/21 Pre-op diagnosis: post menopausal bleeding Endometrial polyp Post-op diagnosis: other (Extensive abdominal adhesive disease) Procedure performed: 1. Robotic assisted laparoscopic hysterectomy with bilateral salpingo oophorectomy. Anesthesia: GETA Surgeon: Poncho Taylor MD Estimated blood loss (mL): 25 IV fluids (mL): 1,500 Urine output (mL): 325 Drains: No Packing: No Pathology: yes (uterus fallopian tubes and ovaries bilaterally) Complications: No immediate complications Condition: stable Disposition: floor Findings: Extensive adhesions of omentum and small bowel to mid abdomen. Adhesion of right ovary to side wall.
[2021-02-23] MEDS: INSULIN HUMAN REGULAR (*BKC) 100 UNITS/ML IV PUSH (12:34)
--- NOTE | 2021-02-23 13:30 | PC.NURSE ---
PT arrived on unit via bed and taken to room 289/ PT accompanied by family member. PT oriented to room 289 and surroundings. PT introductions made and plan of care discussed per post op incident response lead surgery, pain management, daily care activities. PT received such instructions per one to one discussion, demonstration. PT and sister were both recipients of such instructions. no barriers to learning noted. PT verbalized understanding of such care.
[2021-02-23] MEDS: LACTATED RINGERS 1,000 ML 125 ML (14:04)
[2021-02-23] MEDS: KETOROLAC 30 MG/ML VIAL (*BKC) IV PUSH ×2 (14:09→21:30)
[2021-02-23 15:59] LABS: Glucose Point of Care 238 mg/dl (65-105)
--- NOTE | 2021-02-23 16:25 | W.PM.PROC2 ---
Procedure Note - Detailed Date of Procedure 02/23/21 Pre-op Diagnosis post menopausal bleeding endometrial polyp Post-op Diagnosis other (1. Same as preop 2. Extensive abdominal adhesions ) Procedure Performed 1. Robotic assisted laparoscopic vaginal hysterectomy with bilateral salpingo-oophorectomy. 2. Extensive lysis of adhesions. Surgeon Poncho Taylor MD Puncher Benajmin De Guzman Anesthesia general Indications Patient with recurrent postmenopausal bleeding and recurrent endometrial polyp on office endometrial biopsy. She desired definitive treatment with hysterectomy. Findings Extensive adhesions of the omentum and small bowel at the mid abdomen. Adhesion of right ovary to right side wall. Description of Procedure After informed consent was obtained patient was taken to the operating room and general endotracheal anesthesia was administered. She was placed in low lithotomy position and prepped and draped in sterile fashion. Prior to being prepped and draped and exam under anesthesia was performed and no masses were palpated uterus palpated to be normal size. A Mckenna catheter had been placed in bladder. A bivavle speculum was placed in the vagina. A single-tooth tenaculum was placed on the anterior lip of the cervix. The uterus was sounded to 8 cm. A size 8 manipulator and colp cup were inserted and secured. With sterile gloves attention was turned to the abdomen a horizontal incision was made 2 cm above the umbilicus in the center. Subcutaneous tissue was dissected with Dayna. Veress needle was inserted confirmation into the abdomen obtained with normal free flow of fluid through the Veress needle and normal peritoneal pressures. A pneumoperitoneum of 15 mm per mercury was obtained. A size 10/11 port was inserted under laparoscopic visualization. There was noted to be scarring of omentum with small bowel superior and to the right and left of port. At an area that did not have scar on the left side, 1% lidocaine was injected and an 8 mm port was inserted into subcutaneous layer but this was removed before entering the peritoneum since there was scar tissue near it. An incision inferior and more lateral to this was made with the scalpel and the 8mm port was inserted in the area that was clear of scar tissue. An incision was made on the right and an 8 mm robotic port was inserted under laparoscopic visualization in an area free of scar tissue. It took an hour using endoshears and the loop from the ligature to dissect the omental scar tissue from the side of the supraumbilical port and to the left of the port. This did free up the scar tissue that was tinting the small bowel up. Once the scar tissue surrounding the umbilical port was cleared then an incision was made to the medial of the right port and superior in an area that was clear of scar tissue. A 10mm topographical field assistant port was inserted under laparoscopic visualization. The robotic instruments were attached. Attention was then turned to the surgery console. Attention was turned to the right round ligament which was cauterized and incised. The anterior leaf of the broad ligament was dissected anteriorly . The vesicouterine peritoneum was dissected from the lower uterine segment. Attention was turned to the right ovary which was mildly adhesed to the right lower pelvic wall. These adhesions were lysed Attention was turned to the right infundibulopelvic ligament which was cauterized. The fallopian tube cauterized from posterior leaf of broad ligament. The bladder was further dissected to below the colp cup palpated. The ascending vessels on the right were cauterized. Attention was then turned to the left round ligament which was cauterized and incised the anterior leaf of the broad ligament was further dissected anteriorly. And the bladder was dissected from the lower uterine segment to the point where the cold cup was palpated. Attention was then turned to the left infundibulopelvic ligament. This was cauterized and
[2021-02-23 16:56] LABS: Mean Platelet Volume 10.7 fl (7.4-10.4); Platelet Count Result 233 k/mm3 (150-375)
[2021-02-23] MEDS: metFORMIN HCL 500 MG TABLET 1000 MG PO (17:44)
[2021-02-23] MEDS: SILVER SULFADIAZINE 1% CR 50 GM JAR (*BKC) 1 APPLIC TOPICAL (21:31)
[2021-02-24 05:42] LABS: Glucose Point of Care 154 mg/dl (65-105)
[2021-02-24 05:44] VITALS: BP 133/63; PULSE 79; RESP 18; TEMP 36.4; O2SAT 99
[2021-02-24 08:30] VITALS: BP 111/60; PULSE 72; RESP 20; TEMP 36.4; TEMP 36.8; O2SAT 97
--- NOTE | 2021-02-24 08:30 | PC.NURSE ---
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 PT verbalized understanding of such care. PT received instructions per one to one discussion, demonstration and pt is the recipient of such instructions and no barriers to learning noted.
--- NOTE | 2021-02-24 08:40 | WPDANESPN ---
Anes - Prog Note Post-Op Date/Time: 02/24/21 08:40 Cardiovascular status: normal Respiratory status: normal Airway patency: baseline Mental status: baseline Post-Op hydration status: normal Vital Signs: Last Vital Signs Temp 36.4 C L 02/24/21 05:44 Pulse 79 02/24/21 05:44 Resp 18 02/24/21 05:44 BP 133/63 02/24/21 05:44 Pulse Ox 99 02/24/21 05:44 Pain Score (VAS): 0/10. Patient resting up to bedside chair at time of assessment, appears comfortable. I/O: Intake & Output 02/23/21 02/24/21 02/24/21 23:59 07:59 15:59 Intake Total 1974 400 Output Total 1925 950 Balance 49 -550 Laboratory Tests 02/23/21 16:52 02/23/21 02/23/21 02/24/21 12:07 16:52 05:37 Plt Count 233 MPV 10.7 H POC Capillary Glucose 238 H 154 H Post-procedural complaints: none Patient Feedback: Patient satisfied with anesthetic care.
--- NOTE | 2021-02-24 08:48 | PM.GYNPNOP ---
TOWEL WEAVER - A/P Assessment and plan (1) History of hysterectomy: Code(s): Z90.710 - Acquired absence of both cervix and uterus Status: Acute Assessment and Plan: Postop day 1. She is doing well. Will discharge home today. Discussed discharge precautions. Postoperative Procedures: Procedures Operation Date: 02/23/21 07:30 Actual Procedure Side Surgeon p Robotic Assisted Laparoscopic Hysterectomy with Bilateral Salpingo-Oophorectomy, Extensive Lysis of Adhesions Bilateral Poncho Taylor MD Time Spent With Patient Time: Total time spent is greater than 50% in coordination of care (as documented) at patient's floor/unit and/or counseling patient: Time with patient: less than 15 minutes TOWEL WEAVER- PN:Subj Post-Op Subjective Date/time seen: 02/24/21 08:48 Interval history: She has set up in a chair. She reports positive flatus. She has had a good pain control with IV Toradol and IV acetaminophen. Has urinated without problems. She has tolerated regular diabetic diet. She has ambulated in the room without problems. Subjective: pain is well controlled and patient is tolerating oral intake Review of Systems Review of Systems: All systems reviewed & are unremarkable except as noted in HPI and below Cardiovascular: Cardiovascular: Reports no additional cardiovascular complaints Respiratory: Respiratory: Reports no additional respiratory complaints Gastrointestinal: Gastrointestinal: Reports belching, Denies nausea and Denies vomiting Genitourinary: Genitourinary: Reports no additional female genitourinary complaints Musculoskeletal: Musculoskeletal: Reports no additional musculoskeletal complaints Exam Const: General: comfortable and no acute distress Orientation/consciousness: oriented to person, oriented to place and oriented to time Resp: Auscultation: clear to auscultation bilaterally Cardio: Rate: regular rate Rhythm: regular rhythm GI: GI Palp: Yes Soft to palpation Auscultation: normal bowel sounds Other: Mild tenderness and incision sites appropriate incisions clean dry and intact mild bruising noted. Neuro: General: oriented to person, oriented to place and oriented to time Extrem: General: no calf tenderness Psych: Mental Status: mental status grossly normal TOWEL WEAVER - PN: Obj Data Vital Signs Vital Signs: Vital Signs - 24 hr 02/23/21 12:10 02/23/21 12:25 02/23/21 12:40 Temperature 97.3 F L Pulse Rate 79 82 64 Respiratory Rate 22 H 16 16 Blood Pressure 137/73 146/76 H 162/80 H Pulse Oximetry 100 100 100 02/23/21 12:55 02/23/21 13:30 02/23/21 13:45 Temperature 96.9 F L Pulse Rate 77 88 88 Respiratory Rate 14 22 H 22 H Blood Pressure 147/68 H 152/82 H Pulse Oximetry 96 95 95 02/23/21 20:00 02/23/21 23:51 02/24/21 05:44 Temperature 99.1 F 97.4 F L 97.5 F L Pulse Rate 103 H 87 79 Respiratory Rate 18 18 18 Blood Pressure 132/81 127/70 133/63 Pulse Oximetry 95 95 99 Intake/Output Intake/Output: Intake & Output 02/21/21 02/22/21 02/23/21 02/24/21 23:59 23:59 23:59 23:59 Intake Total 2474 400 Output Total 2290 950 Balance 184 -550 Meds/Results Medications: Active Medications Generic Name Dose Route Start Last Admin Trade Name Freq PRN Reason Stop Dose Admin Ezetimibe 10 mg 02/24/21 09:00 Ezetimibe 10 Mg Tablet PO DAILY FABIAN Famotidine 20 mg 02/24/21 09:00 Famotidine 20 Mg Tablet PO DAILY FABIAN Glimepiride 2 mg 02/24/21 09:00 Glimepiride 2 Mg Tablet PO QAM FABIAN Acetaminophen 1,000 mg in 100 mls @ 400 mls/hr 02/23/21 18:00 02/24/21 05:34 Ofirmev 1,000 Mg Ivpb IVPB 02/24/21 18:01 400 mls/hr Q6HR FABIAN Administration Cefazolin Sodium 1 gm in 50 mls @ 100 mls/hr 02/23/21 18:00 02/24/21 02:30 Ancef 1 Gm/D5w 50 Ml Pm IVPB 100 mls/hr Q8H FABIAN Administration Ketorolac Tromethamine 30 mg 02/23/21 12:55 02/23/21 21:30 Ketorolac 30 Mg/Ml Vial (*Bkc) IV PUSH 30 mg Q6H PRN Admin
--- NOTE | 2021-02-24 08:56 | PM.DS ---
DS: Admitting Diagnosis Admitting Diagnosis Admitting Diagnosis: 1.Postmenopausal bleeding 2. Endometrial polyp DS: Discharge Diagnosis Discharge Diagnosis (1) Postmenopausal bleeding: Code(s): N95.0 - Postmenopausal bleeding Status: Acute (2) Endometrial polyp: Code(s): N84.0 - Polyp of corpus uteri Status: Acute DS: Summary Hospital Course Reason for hospitalization: Recurrent postmenopausal bleeding and endometrial polyp. Hospital Course: Patient was admitted on 02/23/2021. She underwent an uncomplicated robotic assisted laparoscopic vaginal hysterectomy. Postoperatively patient did well. She had adequate pain control postoperatively. She tolerated liquids. On the morning of postop day 1 she was tolerating regular food was ambulating well had positive flatus had adequate pain control and was discharged to home on postop day 1. With discharge precautions. Status at Discharge Functional status at discharge: independent ambulation Overall status at discharge: other (Recovery) Time Spent with Patient Time attestation: Total time spent providing and/or coordinating discharge services: Time spent: Less than 30 minutes Exam Const: General: cooperative and comfortable Orientation/consciousness: oriented to person, oriented to place and oriented to time HENMT: General nose exam: Normal external nose present Eyes: General: appearance normal, both eyes and all related structures Resp: Effort & Inspection: normal respiratory effort GI: Inspection: normal to inspection Skin: General skin exam: normal color Neuro: General: oriented to person, oriented to place and oriented to time Extrem: General: normal to inspection and no calf tenderness Psych: Appearance: grossly normal Mental Status: mental status grossly normal Affect: normal affect Other: Abd: fundus firm below umbilicus, nontender Perineum: healing Ext: nontender DS: Data Data Completed and Pending Pending studies at discharge: Pending at discharge 02/23/21 10:59 Surgical [PTH] Routine Labs on day of discharge: Labs from last 24 hours 02/24/21 02/23/21 02/23/21 05:37 16:52 12:07 Plt Count 233 MPV 10.7 H POC Capillary Glucose 154 H 238 H Discharge Plan Discharge Patient Disposition: Home, Self-Care Discharge Instructions: Post hysterectomy precautions. Patient Instructions: Laparoscopic Hysterectomy (DC), Pain Management After Surgery (DC) Follow-up/Referrals: Poncho Taylor MD [Physician] - Keep Reg. Scheduled Appt. ( She has appointment for 1 week.) Discharge Orders: Discharge Order (Routine); Ordered 02/24/21 Ordered By: Poncho Taylor Discharge Medications: No Action Complete Multivitamin Tablet 1 tablet PO DAILY RF: 0 Zyrtec 10 mg capsule 10 mg PO DAILY RF: 0 losartan 25 mg tablet 25 mg PO DAILY RF: 0 ezetimibe 10 mg tablet 10 mg PO DAILY RF: 0 glimepiride 2 mg tablet 2 mg PO QAM RF: 0 ascorbate calcium (vitamin C) 500 mg tablet 500 mg PO DAILY RF: 0 Saxenda 3 mg/0.5 mL (18 mg/3 mL) pen injector 3 mg SUB-Q DAILY RF: 0 metformin 500 mg tablet 1,000 mg PO BID RF: 0 famotidine 20 mg tablet 20 mg PO DAILY RF: 0 cholecalciferol (vitamin D3) 125 mcg (5,000 unit) capsule 125 mcg PO DAILY RF: 0 nystatin-triamcinolone 100,000-0.1 unit/gram-% ointment 1 applic topical BID Qty: 15 RF: 0 cyanocobalamin (vitamin B-12) [Vitamin B-12] 1,000 mcg Tablet 1,000 mcg PO DAILY RF: 0 Quality VTE Prophylaxis VTE prophylaxis: mechanical ordered
[2021-02-24] MEDS: LORATADINE 10 MG TABLET PO (09:54)
[2021-02-24] MEDS: FAMOTIDINE 20 MG TABLET PO (09:54)
[2021-02-24] MEDS: EZETIMIBE 10 MG TABLET PO (09:55)
[2021-02-24] MEDS: metFORMIN HCL 500 MG TABLET 1000 MG PO (09:55)
[2021-02-24] MEDS: THERAPEUTIC MULTIVITAMINS/MINERALS TAB (*BKC) 1 TABLET PO (09:55)
[2021-02-24] MEDS: LOSARTAN POTASSIUM 25 MG TABLET PO (09:56)
[2021-02-24] MEDS: GLIMEPIRIDE 2 MG TABLET PO (09:56)
[2021-02-24] MEDS: SILVER SULFADIAZINE 1% CR 50 GM JAR (*BKC) 1 APPLIC TOPICAL (09:58)
[2021-02-24] MEDS: KETOROLAC 30 MG/ML VIAL (*BKC) IV PUSH (09:59)
--- NOTE | 2021-02-24 10:45 | PC.NURSE ---
Pt received discharge instructions per protocol and pt verbalized understanding.
--- NOTE | 2021-02-24 11:05 | PC.NURSE ---
PT discharged to home via wheelchair accompanied by family member and taken to waiting car. Follow up appts confirmed
== END 2021-02-24 11:05 | disposition home or self-care (01) ==
LOC: ANHSURGERY 05:50 → ANHOB2 13:44
PROVIDERS: PCP Nurse Practitioner Adult Health; Visit Provider Obstetrics & Gynecology
PROC: (CPT 58552; principal; 2021-02-23 07:30)
DX: N95.0 Postmenopausal bleeding (principal); N73.6 Female pelvic peritoneal adhesions (postinfective); D25.2 Subserosal leiomyoma of uterus; N85.01 Benign endometrial hyperplasia; E10.9 Type 1 diabetes mellitus without complications; I10 Essential (primary) hypertension; E78.5 Hyperlipidemia, unspecified; G47.30 Sleep apnea, unspecified; Z79.84 Long term (current) use of oral hypoglycemic drugs; E66.01 Morbid (severe) obesity due to excess calories; Z68.42 Body mass index [BMI] 45.0-49.9, adult
CPT/HCPCS: 58552; S2900; 36415; 80048; 82948; 85049; 86850; 86900; 86901; 88307; 99199; A9270; C9803; J0131; J0330; J0690; J1100; J1170; J1815; J1885; J2250; J2370; J2704; J2710; J3010; J7030; J7120; U0003; U0005

== ENCOUNTER 2021-06-10 15:40 | Emergency (ER) | payer OTHER, SELFPAY ==
[2021-06-10 15:50] VITALS: BP 152/80; PULSE 94; RESP 20; TEMP 37.1; O2SAT 100
--- NOTE | 2021-06-10 16:11 | ED.URI ---
HPI - URI/Sore Throat General Chief Complaint: Upper Respiratory Infection Stated Complaint: earache/cough/runny nose/sore throat Time Seen by Provider: 06/10/21 16:00 Source: patient and RN notes reviewed Mode of arrival: ambulatory Limitations: no limitations History of Present Illness HPI Narrative: Patient presents today complaining of a 2-day history of bilateral ear pain, postnasal drip, rhinorrhea, nonproductive cough, sneezing. Denies shortness of breath or fever. Denies history of asthma or COPD. She is a non-smoker. She has been taking Mucinex and Zyrtec without relief. MD elicited complaint: cough Related Data Home Medications Medication Instructions Recorded Confirmed ascorbate calcium (vitamin C) 500 500 mg PO DAILY 05/27/20 06/10/21 mg tablet cetirizine 10 mg capsule 10 mg PO DAILY 05/27/20 06/10/21 ezetimibe 10 mg tablet 10 mg PO DAILY 05/27/20 06/10/21 glimepiride 2 mg tablet 2 mg PO QAM 05/27/20 06/10/21 liraglutide (weight loss) 3 mg/0.5 3 mg SUB-Q DAILY 05/27/20 06/10/21 mL (18 mg/3 mL) subcut pen injector multivitamin,[id number] 1 tablet PO DAILY 05/27/20 06/10/21 cyanocobalamin (vitamin B-12) 1,000 mcg PO DAILY 06/17/20 06/10/21 [Vitamin B-12] famotidine 20 mg tablet 20 mg PO DAILY 06/23/20 06/10/21 metformin 500 mg tablet 1,000 mg PO BID 06/23/20 06/10/21 cholecalciferol (vitamin D3) 125 125 mcg PO DAILY 12/28/20 06/10/21 mcg (5,000 unit) capsule liraglutide (weight loss) [Saxenda] 3 mg SUBCUT DAILY 06/10/21 06/10/21 losartan 50 mg PO DAILY 06/10/21 06/10/21 Allergies Allergy/AdvReac Type Severity Reaction Status Date / Time lisinopril AdvReac Intermediate Cough Verified 06/10/21 15:44 hydrocodone AdvReac Mild Dizziness Verified 06/10/21 15:44 Review of Systems Review of Systems: CONSTITUTIONAL: Denies body aches, fever, chills, or sweats. EYES: Denies visual changes, redness, or discharge. ENT: Denies congestion, sore throat. + postnasal drip, rhinorrhea, sneezing, bilateral ear pain CARDIOVASCULAR: Denies chest pain, palpitations, or edema. RESPIRATORY: Denies dyspnea.+ Nonproductive cough GASTROINTESTINAL: Denies abdominal pain, nausea, vomiting, or diarrhea. GENITOURINARY: Denies dysuria or hematuria. SKIN: Denies rash, itching, or wounds. MUSCULOSKELETAL: Denies back pain, joint pain, or myalgia. NEUROLOGIC: Denies headache, numbness, tingling, or weakness. PSYCH: Denies depression or anxiety. [facility] Past Medical History Medical History Diverticulitis DM I (diabetes mellitus, type I) Far-sighted HLD (hyperlipidemia) HTN (hypertension) Leaky heart valve left ventricle Rectal fissure Sleep apnea Surgical History Surgical History H/O removal of cyst left wrist History of hysterectomy History of hysteroscopy History of tonsillectomy Hx of cholecystectomy S/P D&C (status post dilation and curettage) Family History Family History Mother Family history of hypercholesterolemia Hypertension Cerebrovascular accident Family history of lung cancer Other Family history of malignant neoplasm Family history of malignant neoplasm of breast Family history of malignant neoplasm of ovary Social History Social History Smoking status: Never smoker Second hand tobacco smoke exposure: No Alcohol intake: current Substance use: unknown Spiritual care concerns: No Comments At time of signature, I have reviewed and agree with nursing past medical, surgical, social and family history unless otherwise noted. Please see nursing chart for further information. There is no relevant family history pertinent to the presenting complaint Exam Narrative: GENERAL: Well-appearing, well-nourished, and in no acute distress. HE
== END 2021-06-10 16:22 | disposition home or self-care (01) ==
PROVIDERS: Emergency Provider Nurse Practitioner; PCP Nurse Practitioner Adult Health
DX: J06.9 Acute upper respiratory infection, unspecified (principal); E10.9 Type 1 diabetes mellitus without complications; E78.5 Hyperlipidemia, unspecified; I10 Essential (primary) hypertension; G47.30 Sleep apnea, unspecified; I38 Endocarditis, valve unspecified
CPT/HCPCS: 99213; G0463

== ENCOUNTER 2021-06-12 10:48 | Emergency (ER) | payer OTHER, SELFPAY ==
--- NOTE | ~2021-06-12 | XR_ITS ---
XR chest 2V DATE: 06/12/2021 11:15 INDICATION: Cough for 5 days. No fever. History of hypertension. TECHNIQUE: PA and lateral views COMPARISON: 09/28/2019 CT pulmonary scan 09/28/2019 PA and lateral chest FINDINGS: Normal heart size. No hilar or mediastinal enlargement. No pulmonary infiltrate or consolid ation, pleural effusion or pulmonary vascular congestion or pneumothorax. Degenerative spurring of the thoracic spine. IMPRESSION: No active cardiopulmonary disease Reviewed, dictated and finalized at location A.
[2021-06-12 10:54] VITALS: BP 169/84; PULSE 91; RESP 20; TEMP 37; O2SAT 97
--- NOTE | 2021-06-12 10:55 | ED.URI ---
HPI - URI/Sore Throat General Chief Complaint: Upper Respiratory Infection Stated Complaint: Cough Time Seen by Provider: 06/12/21 10:57 Source: patient and RN notes reviewed Mode of arrival: ambulatory Limitations: no limitations History of Present Illness HPI Narrative: 61-year-old female presents with concern for worsening cough. Reports she was seen in this clinic 2 days ago and was diagnosed with an upper respiratory infection and given steroids and Tessalon Perles. Reports her symptoms are worsening. She reports cough is nonproductive but persistent. She denies body aches, chills, fever, sweats. Reports she was vaccinated for Covid. She reports she has been taking the medication as directed. MD elicited complaint: cough Related Data Home Medications Medication Instructions Recorded Confirmed ascorbate calcium (vitamin C) 500 500 mg PO DAILY 05/27/20 06/10/21 mg tablet cetirizine 10 mg capsule 10 mg PO DAILY 05/27/20 06/10/21 ezetimibe 10 mg tablet 10 mg PO DAILY 05/27/20 06/10/21 glimepiride 2 mg tablet 2 mg PO QAM 05/27/20 06/10/21 liraglutide (weight loss) 3 mg/0.5 3 mg SUB-Q DAILY 05/27/20 06/10/21 mL (18 mg/3 mL) subcut pen injector multivitamin,bj-rdtt-mvmqnfpt 1 tablet PO DAILY 05/27/20 06/10/21 cyanocobalamin (vitamin B-12) 1,000 mcg PO DAILY 06/17/20 06/10/21 [Vitamin B-12] famotidine 20 mg tablet 20 mg PO DAILY 06/23/20 06/10/21 metformin 500 mg tablet 1,000 mg PO BID 06/23/20 06/10/21 cholecalciferol (vitamin D3) 125 125 mcg PO DAILY 12/28/20 06/10/21 mcg (5,000 unit) capsule liraglutide (weight loss) [Saxenda] 3 mg SUBCUT DAILY 06/10/21 06/10/21 losartan 50 mg PO DAILY 06/10/21 06/10/21 Allergies Allergy/AdvReac Type Severity Reaction Status Date / Time lisinopril AdvReac Intermediate Cough Verified 06/12/21 10:54 hydrocodone AdvReac Mild Dizziness Verified 06/12/21 10:54 Review of Systems Review of Systems: CONSTITUTIONAL: Denies malaise, chills, sweats, or fever. EYES: Denies visual changes, redness, or discharge. ENT: Reports rhinorrhea, postnasal drip, sneezing, ear pressure. Denies congestion, sinus pain, otalgia and sore throat. CARDIOVASCULAR: Denies chest pain, palpitations, or edema. RESPIRATORY: Reports persistent nonproductive cough. Denies dyspnea. GASTROINTESTINAL: Denies abdominal pain, nausea, vomiting, diarrhea SKIN: Denies rash or itching. MUSCULOSKELETAL: Denies myalgia. NEUROLOGIC: Denies headache. All systems reviewed & are unremarkable except as noted in HPI and below PMFSH Past Medical History Medical History Diverticulitis DM I (diabetes mellitus, type I) Far-sighted HLD (hyperlipidemia) HTN (hypertension) Leaky heart valve left ventricle Rectal fissure Sleep apnea Surgical History Surgical History H/O removal of cyst left wrist History of hysterectomy History of hysteroscopy History of tonsillectomy Hx of cholecystectomy S/P D&C (status post dilation and curettage) Family History Family History Mother Family history of hypercholesterolemia Hypertension Cerebrovascular accident Family history of lung cancer Other Family history of malignant neoplasm Family history of malignant neoplasm of breast Family history of malignant neoplasm of ovary Social History Social History Smoking status: Never smoker Second hand tobacco smoke exposure: No Alcohol intake: current Substance use: unknown Spiritual care concerns: No Comments At time of signature, agree with nursing past medical, surgical, social and family history. There is no relevant family history pertinent to the presenting complaint Exam Narrative: GENERAL: Well-appearing, well-nourished, and in no acute distress. HEAD: Normocephalic EYES:
[2021-06-13 20:20] LABS: SARS-CoV-2 RNA PCR Negative
== END 2021-06-12 11:55 | disposition home or self-care (01) ==
PROVIDERS: Emergency Provider Nurse Practitioner; PCP Nurse Practitioner Adult Health
DX: R05.9 Cough, unspecified (principal); Z20.822 Contact with and (suspected) exposure to COVID-19; E10.9 Type 1 diabetes mellitus without complications; E78.5 Hyperlipidemia, unspecified; I10 Essential (primary) hypertension; G47.30 Sleep apnea, unspecified; I38 Endocarditis, valve unspecified
CPT/HCPCS: 71046; 87426; 99213; C9803; G0463; U0003; U0005

== ENCOUNTER → 2021-09-10 07:18 | Outpatient (CLI) | payer OTHER, SELFPAY ==
[2021-09-10 22:40] LABS: SARS-CoV-2 RNA PCR Positive
== END ==
PROVIDERS: PCP Nurse Practitioner Adult Health; Visit Provider Nurse Practitioner Adult Health
DX: U07.1 COVID-19 (principal)
CPT/HCPCS: C9803; U0003; U0005

== ENCOUNTER 2021-12-22 14:17 | Emergency (ER) | payer OTHER, SELFPAY ==
[2021-12-22] VITALS (41 sets, daily range): BP systolic 78–168; BP diastolic 53–110; PULSE 73–96; RESP 12–26; TEMP 36.2; O2SAT 93–99
--- NOTE | ~2021-12-22 | CT_ITS ---
EXAMINATION: CT brain wo con INDICATION: Dizziness and vertigo COMPARISON: None TECHNIQUE: Standard unenhanced head CT. The dose-length product (DLP) was 605.33 mGy-cm. The mA was a djusted according to patient size. Iterative reconstruction technique was employed. FINDINGS: There is no intracranial hemorrhage, acute infarction, or abnormal mass lesion. The ventric les are normal. There is no abnormal mass effect or midline shift. The norwood-white matter differentiat ion is normal. The basal cisterns are patent. The orbits are normal. The paranasal sinuses, mastoids and calvarium are normal. IMPRESSION: 1. No acute intracranial abnormality. Reviewed, dictated and finalized at location F.
--- NOTE | 2021-12-22 14:29 | ECG_ITS ---
Measurements Intervals [place] Rate: 88 P: 32 CA: 186 QRS: 57 QRSD: 91 T: 51 QT: 377 QTc: 457 Interpretive Statements SINUS RHYTHM LOW-VOLTAGE QRS IN PRECORDIAL LEADS BORDERLINE ECG COMPARED TO ECG 01/06/2021 16:15:37 NO SIGNIFICANT CHANGES Electronically Signed On 12-22-2021 17:08:44 CDT by William Bal M.D.
[2021-12-22 14:54] LABS: Basophils Absolute Auto 0.1 K/mm3 (0.0-0.1); Basophils Percent Auto 0.7 % (0.2-1.2); Eosinophils Absolute Auto 0.1 K/mm3 (0-0.3); Eosinophils Percent Auto 1.1 % (0-4.4); Hematocrit 44.8 % (37.0-47.0); Hemoglobin 14.6 g/dL (12.0-15.0); Immature Granulocyte Absolute 0.01 K/mm3 (0.00-0.031); Immature Granulocyte Percent A 0.1 % (0-0.5); Lymphocytes Absolute Auto 1.64 K/mm3 (0.9-3.2); Lymphocytes Percent Auto 22.2 % (18.3-44.2); Mean Corpuscular HGB Conc 32.6 g/dl (32-36); Mean Corpuscular Hemoglobin 30.2 pg (26-34); Mean Corpuscular Volume 92.8 fl (80-100); Mean Platelet Volume 11.2 fl (7.4-10.4); Monocytes Absolute Auto 0.6 K/mm3 (0.1-0.6); Monocytes Percent Auto 8.5 % (2.6-8.5); Neutrophils Percent Auto 67.4 % (45.5-73.1); Platelet Count Result 236 k/mm3 (150-375); Red Blood Count 4.83 M/mm3 (4.2-5.4); Red Cell Distribution Width 13.3 % (11.5-14.5); White Blood Count 7.4 K/mm3 (4.5-10.0)
[2021-12-22 15:07] LABS: Alanine Aminotransferase 76 U/L (4-35); Albumin Level 4.3 g/dL (3.5-5.1); Alkaline Phosphatase 106 U/L (38-126); Anion Gap 8 mmol/L (8-16); Aspartate Amino Transferase 86 U/L (14-36); Bilirubin,Total 0.5 mg/dL (0.2-1.3); Blood Urea Nitrogen 10 mg/dL (7-17); Calcium 9.6 mg/dL (8.4-10.2); Carbon Dioxide 25 mmol/L (22-30); Chloride 103 mmol/L (98-107); Estimated CRCL calculation 102 ml/min; Estimated Glomerular Filt Rate > 60; Glucose 418 mg/dL (65-110); Sodium 136 mmol/L (137-145)
--- NOTE | 2021-12-22 16:46 | ED.DIZZY ---
HPI - Dizziness General Chief Complaint: Dizziness <Tavon Milner MD - Last Filed: 12/22/21 18:44> Stated Complaint: lightheaded, vomiting <Tavon Milner MD - Last Filed: 12/22/21 18:44> Time Seen by Provider: 12/22/21 15:19 <Tavon Milner MD - Last Filed: 12/22/21 18:44> Source: patient and family <Tavon Milner MD - Last Filed: 12/22/21 18:44> Mode of arrival: ambulatory <Tavon Milner MD - Last Filed: 12/22/21 18:44> Limitations: no limitations <Tavon Milner MD - Last Filed: 12/22/21 18:44> History of Present Illness HPI Narrative: Patient is 61 years old white female, came with sudden onset of dizziness, everything spins associated with nausea and vomiting started prior to arrival to the emergency room while standing after eating. Patient reports the symptoms get worse with any head or body movement, get better if she remaining still in 1 position. Patient denies any headache, abdominal pain, chest pain, shortness of breath, back pain. History of diabetes, hypertension, hyperlipidemia. Patient does not smoke or drink or uses drugs. Currently patient on oral antidiabetic medication, used to be on insulin months ago, her insurance declined to pay for it so. Patient been off insulin for months. Patient check her blood pressure once a day or once every few days. <Tavon Milner MD - Last Filed: 12/22/21 18:44> Related Data Home Medications: Home Medications Medication Instructions Recorded Confirmed ascorbate calcium (vitamin C) 500 500 mg PO DAILY 05/27/20 06/12/21 mg tablet cetirizine 10 mg capsule 10 mg PO DAILY 05/27/20 06/12/21 ezetimibe 10 mg tablet 10 mg PO DAILY 05/27/20 06/12/21 glimepiride 2 mg tablet 2 mg PO QAM 05/27/20 06/12/21 liraglutide (weight loss) 3 mg/0.5 3 mg SUB-Q DAILY 05/27/20 06/12/21 mL (18 mg/3 mL) subcut pen injector multivitamin,af-wyxb-ctwrrylp 1 tablet PO DAILY 05/27/20 06/12/21 cyanocobalamin (vitamin B-12) 1,000 mcg PO DAILY 06/17/20 06/12/21 [Vitamin B-12] famotidine 20 mg tablet 20 mg PO DAILY 06/23/20 06/12/21 metformin 500 mg tablet 1,000 mg PO BID 06/23/20 06/12/21 cholecalciferol (vitamin D3) 125 125 mcg PO DAILY 12/28/20 06/12/21 mcg (5,000 unit) capsule liraglutide (weight loss) [Saxenda] 3 mg SUBCUT DAILY 06/10/21 06/12/21 losartan 50 mg PO DAILY 06/10/21 06/12/21 <Tavon Milner MD - Last Filed: 12/22/21 18:44> Allergies/Adverse Reactions: Allergies Allergy/AdvReac Type Severity Reaction Status Date / Time lisinopril AdvReac Intermediate Cough Verified 12/22/21 17:03 hydrocodone AdvReac Mild Dizziness Verified 12/22/21 17:03 <Tavon Milner MD - Last Filed: 12/22/21 18:44> Review of Systems Review of Systems: CONSTITUTIONAL: Denies fever, chills, or sweats. EYES: Denies visual changes, redness, or discharge. ENT: Denies rhinorrhea, congestion, sore throat, or otalgia. CARDIOVASCULAR: Denies chest pain, palpitations, or edema. RESPIRATORY: Denies cough or dyspnea. GASTROINTESTINAL: Denies abdominal pain, nausea, vomiting, or diarrhea. GENITOURINARY: Denies dysuria or hematuria. SKIN: Denies rash or itching. MUSCULOSKELETAL: Denies back pain, joint pain, or myalgia. NEUROLOGIC: Denies headache, numbness, or weakness. PSYCHIATRIC: Denies anxiety or depression. <Tavon Milner MD - Last Filed: 12/22/21 18:44> COUNT INCLUDES THE [facility] Past Medical History Medical History: Medical History Diverticulitis DM I (diabetes mellitus, type I) Far-sighted HLD (hyperlipidemia) HTN (hypertension) Leaky heart valve left ventricle Rectal fissure Sleep apnea <Tavon Milner MD - Last Filed: 12/22/21 18:44> Surgical History Surgical History: Surgical History H/O removal of cyst left wrist History of hysterectomy History of hysteroscopy History of tonsillectomy Hx of cholecystectomy S/P D&C (status post dilati
[2021-12-22] MEDS: MECLIZINE HCL 25 MG TABLET PO (17:12)
[2021-12-22] MEDS: diazePAM INJ (*CRX) 10 MG/2 ML SYRINGE 5 MG IV PUSH (17:12)
[2021-12-22] MEDS: ONDANSETRON INJ 4 MG/2 ML VIAL 8 MG IV PUSH (17:12)
[2021-12-22] MEDS: SODIUM CHLORIDE 0.9% IV 1,000 ML 999 ML IV CONT ×2 (19:08→20:06)
--- NOTE | 2021-12-22 19:18 | PC.NURSE ---
BSSR from [facility]. Pt has no needs at this time. Call light in reach
[2021-12-22 19:39] LABS: Appearance Urine Clear (Clear); Bilirubin Urine Negative (Negative); Blood Urine Negative (Negative); Color Urine Yellow (Yellow); Glucose Urine UA 3+ mg/dL (Negative); Ketones Urine 1+ mg/dL (Negative); Leukocyte Esterase Ur Negative LEU/UL (Negative); Nitrate Urine Negative (Negative); Protein Urine Negative (Negative); Specific Grav Ur 1.015 (1.001-1.035); Urobilinogen Urine 0.2 mg/dL (<2.0)
[2021-12-22 19:46] LABS: Add Urine Microscopic? YES; Bacteria Urine Trace /hpf; RBC Urine 0-2 /hpf (0-2); Squamous Epithelial Cell Urine Many /hpf (Few); WBC Urine 0-3 /hpf
[2021-12-22 20:05] LABS: Glucose Point of Care 268 mg/dl (65-105)
--- NOTE | 2021-12-22 20:51 | PC.NURSE ---
pt had total of 600mL infused of 2nd liter of saline. Per ERP verbal order only infuse the 600ml and d/c patient.
== END 2021-12-22 20:52 | disposition home or self-care (01) ==
PROVIDERS: Emergency Medicine; Emergency Provider Emergency Medicine; PCP Nurse Practitioner Adult Health
DX: H81.10 Benign paroxysmal vertigo, unspecified ear (principal); E11.65 Type 2 diabetes mellitus with hyperglycemia; Z79.84 Long term (current) use of oral hypoglycemic drugs; Z79.899 Other long term (current) drug therapy; R94.31 Abnormal electrocardiogram [ECG] [EKG]
CPT/HCPCS: 36415; 70450; 80053; 81001; 82948; 85025; 93005; 96361; 96374; 96375; 99284; A9270; J2405; J3360; J7030

== ENCOUNTER 2022-07-11 16:42 | Outpatient (CLI) | payer OTHER, SELFPAY ==
--- NOTE | ~2022-07-11 | DEXA_ITS ---
Bone Density Report Name: CICI KIRBY Age: 62 Sex: Female Ethnicity: White Date of : 1960 Indication: postmenopausal; screening for osteoporosis; hysterectomy; Referring Provider: JOANNE SOTELO Study: Bone densitometry was performed. Exam Date: July 11, 2022 Accession number: [id number] Bone Density: Region BMD T-score Z-score Classification AP Spine(L1-L4) 1.121 0.7 2.2 Normal Femoral Neck (Left) 0.729 -1.1 0.2 Osteopenia Total Hip (Left) 0.929 -0.1 0.9 Normal Femoral Neck (Right) 0.814 -0.3 1.0 Normal Total Hip (Right) 0.896 -0.4 0.6 Normal Total Hip Mean 0.913 -0.3 0.8 Normal World Health Organization criteria for BMD impression classify patients as: Normal (T-score at or above -1.0), Osteopenia (T-score between -1.0 and -2.5), or Osteoporosis (T-score at or below -2.5). 10-year Fracture Risk(1): Major Osteoporotic Fracture 6.3% Hip Fracture 0.3% Reported Risk Factors: [place] (), Neck BMD=0.729, BMI=46.3 (1) FRAX(R) Version 3.08. Fracture probability calculated for an untreated patient. Fracture probability may be lower if the patient has received treatment. Clinical Information Provided by Patient: Has used the following medications: Vitamin D Has the following medical conditions: Hysterectomy Patient maximum height was 62 Menopause Age: 51 No regular weight bearing exercise Drinks caffeinated beverages Onset of menses at age 12 Number of children 0 Impression: The patient has low bone mass, based on the Left Femoral Neck T-score. The patient has an estimated ten-year risk of hip fracture of 0.3% and an estimated ten-year risk of major fracture of 6.3%, based on the WHO FRAX algorithm. Discussion: BONE DENSITY IS LOW AT ONE OR MORE SKELETAL SITES. This patient's lowest T-score is low at one or more skeletal sites. It meets the World Health Organization's (WHO) criteria for ?low bone mass? (T-score between -1.0 and -2.5). The patient's 10-year risk of fracture as calculated by FRAX is less than the threshold where pharmacological therapy is recommended by the National Osteoporosis Foundation (NOF). However, all treatment decisions require clinical judgment and consideration of individual patient factors, including patient preferences, comorbidities, previous drug use, risk factors not captured in the FRAX model (e.g., frailty, falls, vitamin D deficiency, increased bone turnover, interval significant decline in bone density) and possible under or overestimation of fracture risk by FRAX. The patient should follow a healthful lifestyle (good nutrition with adequate calcium and vitamin D, and appropriate weight-bearing exercise). Follow-Up: Consider repeating this study in 2 to 3 years to reassess this patient's status, or sooner if there is
== END 2022-07-11 16:43 | disposition home or self-care (01) ==
PROVIDERS: PCP Nurse Practitioner Adult Health; Visit Provider Obstetrics & Gynecology
DX: M85.852 Other specified disorders of bone density and structure, left thigh (principal)
CPT/HCPCS: 77080

== ENCOUNTER 2022-08-11 16:02 | Emergency (ER) | payer OTHER, SELFPAY ==
--- NOTE | ~2022-08-11 | US_ITS ---
EXAMINATION:US venous doppler LE BI INDICATION:Swelling. Calf pain. TECHNIQUE: Multiple grayscale, color flow and Doppler images of the right and left lower extremity de ep venous systems were obtained and reviewed. COMPARISON:02/10/2021 FINDINGS: The common femoral, superficial femoral and popliteal veins demonstrate normal respiratory variation, augmentation and compressibility. Color flow is also seen within the posterior tibial, pe roneal, greater saphenous and profunda veins. IMPRESSION: 1: No lower extremity deep venous thrombosis. Reviewed, dictated and finalized at location A. TER HELPER
[2022-08-11 16:21] VITALS: BP 191/86; PULSE 95; RESP 16; TEMP 36.7; O2SAT 100
--- NOTE | 2022-08-11 17:46 | ED.EXTPRO ---
HPI - Extremity Problem General Chief complaint: Extremity Problem,Nontraumatic Stated complaint: leg pain Time Seen by Provider: 08/11/22 17:38 History of Present Illness HPI Narrative: Patient is a 62-year-old female with a history of diabetes, hypertension, osteoporosis here for evaluation of atraumatic right lower extremity pain and cramping for the past 2 days. Patient states that the pain begins in her calf, first noticed when she was up and moving around. She states that today the pain began to move into her right buttock region and was present at rest, which prompted her ED evaluation. Patient also notes cramping in her left calf for the past several days. She has taken ibuprofen and muscle relaxant without relief of her pain. She has not noticed any swelling, redness, lesions to her leg. No incontinence or retention of bowel or bladder, saddle anesthesia, numbness or tingling in her legs. Related Data Home Medications Medication Instructions Recorded Confirmed ascorbate calcium (vitamin C) 500 500 mg PO DAILY 05/27/20 06/12/21 mg tablet cetirizine 10 mg capsule (Zyrtec) 10 mg PO DAILY 05/27/20 06/12/21 ezetimibe 10 mg tablet 10 mg PO DAILY 05/27/20 06/12/21 glimepiride 2 mg tablet 2 mg PO QAM 05/27/20 06/12/21 multivitamin,cc-cbos-cgikyjvg 1 tablet PO DAILY 05/27/20 06/12/21 (Complete Multivitamin tablet) cyanocobalamin (vitamin B-12) 1,000 mcg PO DAILY 06/17/20 06/12/21 1,000 mcg tablet (Vitamin B-12) famotidine 20 mg tablet 20 mg PO DAILY 06/23/20 06/12/21 cholecalciferol (vitamin D3) 125 125 mcg PO DAILY 12/28/20 06/12/21 mcg (5,000 unit) capsule losartan 50 mg tablet 50 mg PO DAILY 06/10/21 06/12/21 dulaglutide 0.75 mg/0.5 mL 0.75 mg subcut WEEKLY 01/10/22 01/17/22 subcutaneous pen injector (Trulicity) insulin glargine 100 unit/mL 20 unit subcut DAILY 01/10/22 01/17/22 subcutaneous solution (Lantus U-100 Insulin) Allergies Allergy/AdvReac Type Severity Reaction Status Date / Time lisinopril AdvReac Intermediate Cough Verified 12/22/21 17:03 hydrocodone AdvReac Mild Dizziness Verified 12/22/21 17:03 Review of Systems Review of Systems: Gen: Denies fevers or chills Eyes: Denies eye pain or visual change ENT: Denies congestion Respiratory: Denies shortness of breath or cough CV: Denies chest pain or palpitations GI: Denies abdominal pain nausea, emesis or diarrhea denies burning, urgency, frequency or hematuria Musculoskeletal: Reports bilateral lower extremity pain and cramping. Neuro: Denies numbness, tingling, weakness or focal weakness Skin: Denies rash Except as documented, all other systems reviewed and negative PMFSH Past Medical History Medical History Diverticulitis DM I (diabetes mellitus, type I) Far-sighted HLD (hyperlipidemia) HTN (hypertension) Leaky heart valve left ventricle Rectal fissure Sleep apnea Vertigo Surgical History Surgical History H/O removal of cyst left wrist History of hysterectomy History of hysteroscopy History of tonsillectomy Hx of cholecystectomy S/P D&C (status post dilation and curettage) Family History Family History Mother Family history of hypercholesterolemia Hypertension Cerebrovascular accident Family history of lung cancer Other Family history of malignant neoplasm Family history of malignant neoplasm of breast Family history of malignant neoplasm of ovary Social History Social History Smoking status: Never smoker Second hand tobacco smoke exposure: No Alcohol intake: current Substance use: unknown Spiritual care concerns: No Exam Narrative: APPEARANCE: Well appearing, no pain in distress, well-nourished. Head: Normocephalic and atraumatic. EYES: PERRLA/EOMI
[2022-08-11] MEDS: MELOXICAM 7.5 MG TABLET PO (18:02)
[2022-08-11 18:26] LABS: Basophils Percent Auto 0.5 % (0.2-1.2); Eosinophils Absolute Auto 0.1 K/mm3 (0-0.3); Eosinophils Percent Auto 1.1 % (0-4.4); Hematocrit 45.6 % (37.0-47.0); Hemoglobin 15.4 g/dL (12.0-15.0); Immature Granulocyte Absolute 0.01 K/mm3 (0.00-0.031); Immature Granulocyte Percent A 0.1 % (0-0.5); Lymphocytes Absolute Auto 2.79 K/mm3 (0.9-3.2); Lymphocytes Percent Auto 34.4 % (18.3-44.2); Mean Corpuscular HGB Conc 33.8 g/dl (32-36); Mean Corpuscular Hemoglobin 30.6 pg (26-34); Mean Corpuscular Volume 90.7 fl (80-100); Mean Platelet Volume 10.4 fl (7.4-10.4); Monocytes Absolute Auto 0.5 K/mm3 (0.1-0.6); Monocytes Percent Auto 6.4 % (2.6-8.5); Neutrophils Absolute Auto 4.7 K/mm3 (1.3-6.7); Neutrophils Percent Auto 57.5 % (45.5-73.1); Platelet Count Result 299 k/mm3 (150-375); Red Blood Count 5.03 M/mm3 (4.2-5.4); Red Cell Distribution Width 13.1 % (11.5-14.5); White Blood Count 8.1 K/mm3 (4.5-10.0)
[2022-08-11 18:38] LABS: Alanine Aminotransferase 43 U/L (6-35); Albumin Level 4.4 g/dL (3.5-5.1); Alkaline Phosphatase 115 U/L (38-126); Anion Gap 8 mmol/L (8-16); Aspartate Amino Transferase 51 U/L (14-36); Bilirubin,Total 0.7 mg/dL (0.2-1.3); Blood Urea Nitrogen 10 mg/dL (7-17); Calcium 9.8 mg/dL (8.4-10.2); Carbon Dioxide 26 mmol/L (22-30); Chloride 105 mmol/L (98-107); Estimated CRCL calculation 100 ml/min; Estimated Glomerular Filt Rate > 60; Glucose 267 mg/dL (65-110); Sodium 139 mmol/L (137-145)
[2022-08-11 18:39] LABS: Creatine Kinase 56 U/L (30-135); Magnesium 1.8 mg/dL (1.6-2.3); Phosphorus 2.7 mg/dL (2.5-4.5)
[2022-08-11 19:02] VITALS: BP 173/92; PULSE 95; RESP 17; O2SAT 98
[2022-08-11 19:22] VITALS: BP 173/92; PULSE 95; O2SAT 97
== END 2022-08-11 19:23 | disposition home or self-care (01) ==
LOC: ANHED 19:13
PROVIDERS: Nurse Practitioner Family; Emergency Provider Physician Assistant; PCP Family Medicine
DX: R25.2 Cramp and spasm (principal); E10.9 Type 1 diabetes mellitus without complications; I10 Essential (primary) hypertension; M81.0 Age-related osteoporosis without current pathological fracture; G47.30 Sleep apnea, unspecified; I38 Endocarditis, valve unspecified; Z90.710 Acquired absence of both cervix and uterus; Z79.4 Long term (current) use of insulin; Z79.84 Long term (current) use of oral hypoglycemic drugs
CPT/HCPCS: 36415; 80053; 82550; 83735; 84100; 85025; 93970; 99284; A9270

== ENCOUNTER 2022-10-31 17:07 | Outpatient (CLI) | payer OTHER, SELFPAY ==
--- NOTE | ~2022-10-31 | MM_ITS ---
EXAMINATION: MM screening adalid BI w dayron HISTORY: Screening mammogram TECHNIQUE: Craniocaudal and mediolateral oblique 3-D tomosynthesis images were obtained and synthetic 2-D images were generated. CAD analysis was submitted and interpreted. COMPARISON: No prior mammogram is available for comparison at this institution. BREAST PARENCHYMAL COMPOSITION: The breasts are almost entirely fatty. FINDINGS: There is no evidence of suspicious mass, calcification, or architectural distortion to sugg est malignancy in either breast. There has been no suspicious interval change. IMPRESSION: 1. No mammographic evidence of malignancy. 2. Recommend routine screening mammography in one year. BI-RADS Category 1: Negative Reviewed, dictated and finalized at location A. CATEGORICAL PRESCHOOL TEACHER
== END 2022-10-31 17:08 | disposition home or self-care (01) ==
PROVIDERS: PCP Family Medicine; Visit Provider Family Medicine
DX: Z12.31 Encounter for screening mammogram for malignant neoplasm of breast (principal)
CPT/HCPCS: 77063; 77067

== ENCOUNTER 2022-11-16 13:59 | Outpatient (CLI) | payer OTHER, SELFPAY ==
--- NOTE | 2022-11-16 14:26 | ECHO_ITS ---
Patient Info Name: Anaid Blanc Age: 62 years : 1960 Gender: Female Ht: 62 in Wt: 249 lbs BSA: 2.29 m2 HR: 85 bpm BP: 152 / 80 mmHg Technical Quality: Fair Exam Date: 11/16/2022 2:37 PM Exam Location: [facility] Patient Status: Outpatient Admit Date: 11/16/2022 Staff Ordering Physician: Albino Rain DO Dehydrogenation Supervisor: Analia Aj RDCS Attending Provider: Albino Rain DO Referring Physician: Koffi RUIZ; Exam Type: CA echo dop color flow w con Study Info Indications R06.09 - Other forms of dyspnea Complete two-dimensional, color flow and Doppler transthoracic echocardiogram is performed with contrast to opacify the left ventricle and to improve the deliniation of the left ventricle endocardial borders. Contrast/Agitated Saline Contrast/Ag. Saline: Definity Amount: 2.00 ml Administered By: Analia Aj [facility] Existing IV Access: Yes New IV Access: Outer Forearm and Left Site Condition: IV removed Summary 1. Left ventricular chamber dimension is normal. 2. Definity contrast administered improved wall motion interpretation. 3. Left ventricular systolic function is normal, estimated at 60-65%. 4. The left ventricular diastolic function is grade I diastolic dysfunction. 5. E/e' 12 is mildly elevated. 6. There is mild aortic valve sclerosis. 7. The mitral valve has moderately calcified annulus. 8. No pulmonary hypertension, estimated pulmonary arterial systolic pressure is 28 mmHg. 9. There is trivial pericardial effusion. Left Ventricle E/e' 12 is mildly elevated. Definity contrast administered improved wall motion interpretation. Left ventricular chamber dimension is normal. Left ventricular systolic function is normal, estimated at 60-65%. The left ventricular diastolic function is grade I diastolic dysfunction. Right Ventricle Right ventricular chamber dimension is normal. Right ventricular systolic function is normal. Left Atria Left atrial chamber dimension is normal. Right Atria Right atrial chamber dimension is normal. Aortic Valve The aortic valve is trileaflet. There is mild aortic valve sclerosis. There is no aortic valve stenosis. There is no aortic valve regurgitation. Pulmonic Valve There is no pulmonic regurgitation. Mitral Valve The mitral valve has moderately calcified annulus. There is no mitral valve stenosis. There is no mitral valve regurgitation. Tricuspid Valve There is no tricuspid valve regurgitation. No pulmonary hypertension, estimated pulmonary arterial systolic pressure is 28 mmHg. Pericardium/Pleural There is trivial pericardial effusion. Inferior Vena Cava Normal inferior vena cava with >50% collapse upon inspiration consistent with normal right atrial pressure, 5 mmHg. Aorta The aortic root size at the sinus of Valsalva is normal. Left Ventricular Outflow Tract Name Value Normal LVOT 2D LVOT Diameter 1.97 cm LVOT Doppler LVOT Peak Gradient 4 mmHg LVOT Mean Gradient 2 mmHg LVOT VTI
[2022-11-16] MEDS: PERFLUTREN LIPID MICROSPHERES 1.5 ML VIAL DILUTED TO 10 ML TOTAL VOLUME IV PUSH (15:20)
== END 2022-11-16 14:00 | disposition home or self-care (01) ==
PROVIDERS: PCP Family Medicine; Visit Provider Internal Medicine Cardiovascular Disease
DX: R06.09 Other forms of dyspnea (principal); I34.0 Nonrheumatic mitral (valve) insufficiency; I35.1 Nonrheumatic aortic (valve) insufficiency
CPT/HCPCS: C8929; Q9957

== ENCOUNTER 2022-12-27 14:30 | Outpatient (RCR) | payer OTHER, SELFPAY ==
[2022-11-07 14:09] VITALS: BMI 45.6
[2022-11-07 14:53] VITALS: BMI 45.6
== END 2023-01-23 10:25 | disposition home or self-care (01) ==
LOC: ANHDMC 14:30
PROVIDERS: PCP Family Medicine; Visit Provider Nurse Practitioner Family
DX: E11.9 Type 2 diabetes mellitus without complications (principal); Z71.3 Dietary counseling and surveillance; Z71.89 Other specified counseling
CPT/HCPCS: 97802; G0108; G0109

== ENCOUNTER 2023-05-24 15:00 | Outpatient (RCR) | payer OTHER, SELFPAY ==
[2023-05-24 14:55] VITALS: BMI 45.4
[2023-05-24 15:32] VITALS: BMI 45.4
== END 2023-06-11 13:22 | disposition home or self-care (01) ==
LOC: ANHDMC 15:00
PROVIDERS: PCP Family Medicine; Visit Provider Nurse Practitioner Family
DX: E11.9 Type 2 diabetes mellitus without complications (principal); Z71.89 Other specified counseling; Z71.3 Dietary counseling and surveillance
CPT/HCPCS: 97803; G0109

== ENCOUNTER 2024-06-19 15:00 | Outpatient (RCR) | payer OTHER, SELFPAY | END 2024-06-23 10:29 | disposition home or self-care (01) | LOC: ANHDMC 15:00 | PROVIDERS: PCP Family Medicine; Visit Provider Nurse Practitioner Family | DX: E11.65 Type 2 diabetes mellitus with hyperglycemia (principal); Z71.89 Other specified counseling | CPT/HCPCS: G0108 ==

== ENCOUNTER 2024-06-26 10:18 | Emergency (ER) | payer OTHER, SELFPAY ==
[2024-06-26 10:32] VITALS: BP 133/71; PULSE 96; RESP 16; TEMP 37.2; O2SAT 98
[2024-06-26 10:38] VITALS: BP 133/71; PULSE 96; RESP 16; TEMP 37.2; O2SAT 98
--- NOTE | 2024-06-26 10:44 | ED.URI ---
HPI - URI/Sore Throat General Chief Complaint: Upper Respiratory Infection Stated Complaint: cough,ears hurt,COFFMAN Time Seen by Provider: 06/26/24 10:35 Source: patient and RN notes reviewed Mode of arrival: ambulatory Limitations: no limitations History of Present Illness HPI Narrative: Patient presents today with a 2 day history of dry cough, scratchy throat, mild runny nose, and headache due to coughing. Denies shortness of breath, fever, congestion. She has tried no ytnf-jnc-krcvqlp treatment prior to arrival. Patient states she gets coughs like this once a year and is prescribed cough medicine by her PCP, and this is the only thing that is helpful. Related Data Home Medications Medication Instructions Recorded Confirmed ascorbate calcium (vitamin C) 500 500 mg PO DAILY 05/27/20 06/26/24 mg tablet cetirizine 10 mg capsule (Zyrtec) 10 mg PO DAILY 05/27/20 06/26/24 multivitamin,ni-kdxz-asvickvq 1 tablet PO DAILY 05/27/20 06/26/24 (Complete Multivitamin tablet) cholecalciferol (vitamin D3) 125 125 mcg PO DAILY 12/28/20 06/26/24 mcg (5,000 unit) capsule calcium 600 mg (as 2 cap PO DAILY 10/10/22 06/26/24 carbonate)-vitamin D3 12.5 mcg (500 unit) capsule (Calcium with Vit D3) Allergies Allergy/AdvReac Type Severity Reaction Status Date / Time lisinopril AdvReac Intermediate Cough Verified 04/16/24 11:14 hydrocodone AdvReac Mild Dizziness Verified 04/16/24 11:14 Review of Systems Review of Systems: CONSTITUTIONAL: Denies body aches, fever, chills, or sweats. EYES: Denies visual changes, redness, or discharge. ENT: Denies congestion, sore throat, or otalgia.+ rhinorrhea CARDIOVASCULAR: Denies chest pain, palpitations, or edema. RESPIRATORY: Denies dyspnea.+ cough GASTROINTESTINAL: Denies abdominal pain, nausea, vomiting, or diarrhea. GENITOURINARY: Denies dysuria or hematuria. SKIN: Denies rash, itching, or wounds. MUSCULOSKELETAL: Denies back pain, joint pain, or myalgia. NEUROLOGIC: Denies numbness, tingling, or weakness.+ headache PSYCH: Denies depression or anxiety. PMFSH Past Medical History Medical History Body mass index (BMI) greater than 40 (01/15/18) Diverticulitis Endometrial polyp Far-sighted HLD (hyperlipidemia) HTN (hypertension) Leaky heart valve left ventricle Menopause Obesity Postmenopausal bleeding Rectal fissure Sleep apnea Type 2 diabetes mellitus Vertigo Surgical History Surgical History H/O removal of cyst left wrist History of hysterectomy History of hysteroscopy History of tonsillectomy Hx of cholecystectomy S/P D&C (status post dilation and curettage) Family History Family History Mother Family history of hypercholesterolemia Hypertension Cerebrovascular accident Family history of lung cancer Grandparent Acute myocardial infarction Other Family history of malignant neoplasm Family history of malignant neoplasm of breast Family history of malignant neoplasm of ovary Social History Social History Smoking status: Never smoker Second hand tobacco smoke exposure: No Alcohol intake: current Alcohol use details: rarely, maybe 1-2 times per year Substance use: never Do You Feel Safe in your Home?: Yes Lack of Transportation: No Lack of Food: Never True Current Housing: I Have Housing Concerned About Future Housing: No Difficulty Paying Gas/Electric Bills: No Difficulty Paying for Meds: No Currently Unemployed: No Education: Associate Degree Difficulty w/ Childcare or Family Care: No Living arrangements: alone Occupation/Education: occupation Additional occupation/education comments: [employer]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
== END 2024-06-26 10:56 | disposition home or self-care (01) ==
PROVIDERS: Emergency Provider Nurse Practitioner; PCP Family Medicine
DX: J06.9 Acute upper respiratory infection, unspecified (principal); I10 Essential (primary) hypertension; E78.5 Hyperlipidemia, unspecified; E11.9 Type 2 diabetes mellitus without complications; Z79.899 Other long term (current) drug therapy
CPT/HCPCS: 99213; G0463

== ENCOUNTER 2024-10-02 14:24 | Outpatient (CLI) | payer OTHER, SELFPAY ==
--- NOTE | ~2024-10-02 | MM_ITS ---
EXAMINATION: MM screening adalid BI w dayron HISTORY: Screening TECHNIQUE: Craniocaudal and mediolateral oblique 3-D tomosynthesis images were obtained and synthetic 2-D images were generated. CAD analysis was submitted and interpreted. COMPARISON: 10/31/2022 BREAST PARENCHYMAL COMPOSITION: Not Dense: The breasts are almost entirely fatty. FINDINGS: There is no evidence of suspicious mass, calcification, or architectural distortion to sugg est malignancy in either breast. There has been no suspicious interval change. IMPRESSION: 1. No mammographic evidence of malignancy. 2. Recommend routine screening mammography in one year. BI-RADS Category 1: Negative Reviewed, dictated and finalized at location A. [employer]
== END 2024-10-02 14:25 | disposition home or self-care (01) ==
PROVIDERS: PCP Family Medicine; Visit Provider Family Medicine
DX: Z12.31 Encounter for screening mammogram for malignant neoplasm of breast (principal)
CPT/HCPCS: 77063; 77067